=== PATIENT | male | born 1945 | race Caucasian/White ===

== ENCOUNTER → 2017-03-08 | Outpatient (CLI) | payer MEDICARE, OTHER ==
[2017-03-08 16:39] LABS: ALBUMIN 4.1 GM/DL (3.2-5.2); ALBUMIN/GLOBULIN RATIO 1.28 (1.00-1.93); ALKALINE PHOSPHATASE 48 U/L (45-117); ALT/SGPT 40 U/L (12-78); ANION GAP 6 MEQ/L (8-16); AST/SGOT 29 U/L (15-37); BILIRUBIN,TOTAL 0.4 MG/DL (0.2-1.0); BLOOD UREA NITROGEN 19 MG/DL (7-18); CALCIUM LEVEL 9.8 MG/DL (8.8-10.2); CARBON DIOXIDE LEVEL 30 MEQ/L (21-32); CHLORIDE LEVEL 104 MEQ/L (98-107); CREATININE FOR GFR 1.08 MG/DL (0.70-1.30); GLOMERULAR FILTRATION RATE > 60.0 (>42); GLUCOSE, FASTING 175 MG/DL (83-110); POTASSIUM SERUM 5.1 MEQ/L (3.5-5.1); SODIUM LEVEL 140 MEQ/L (136-145); TOTAL PROTEIN 7.3 GM/DL (6.4-8.2)
[2017-03-08 16:42] LABS: BASO % 0.6 % (0.0-1.0); EOS # 0.3 K/mm3 (0.0-0.50); EOS % 3.4 % (0.0-3.0); LARGE UNSTAINED CELL # 0.1 K/mm3 (0.0-0.4); LARGE UNSTAINED CELL % 1.6 % (0.0-4.0); LYMPH # 1.7 K/mm3 (1.5-4.5); LYMPH % 17.3 % (24.0-44.0); MEAN CORPUSCULAR HGB CONC 33.7 g/dl (32.0-36.5); MONO # 0.6 K/mm3 (0.0-0.8); MONO % 6.9 % (0.0-5.0); NEUTROPHILS # 6.3 K/mm3 (1.8-7.7); NEUTROPHILS % 70.2 % (36.0-66.0); PLATELET COUNT, AUTOMATED 199 k/mm3 (150-450); RED CELL DISTRIBUTION WIDTH 13.1 % (11.5-14.5)
== END ==
LOC: M ADAMS 08:57
PROVIDERS: ATTEND Physician Assistant
DX: N30.01 Acute cystitis with hematuria (principal)

== ENCOUNTER → 2017-03-24 | Outpatient (REF) | payer MEDICARE, OTHER ==
[~2017-03-24] MED LIST: ASPI81TA85 PO; CHLO125TA PO; FLUO20CA9 PO; FLUO5CR TOP; GLIM1TAB PO; JANU100T PO; METO50TA2 PO; RAMI5CA PO; SIMV40TA2 PO; VITA500046 PO
[2017-03-24 13:46] LABS: ALBUMIN/GLOBULIN RATIO 1.18 (1.00-1.93); ALKALINE PHOSPHATASE 46 U/L (45-117); ALT/SGPT 39 U/L (12-78); ANION GAP 5 MEQ/L (8-16); AST/SGOT 24 U/L (15-37); BILIRUBIN,TOTAL 0.5 MG/DL (0.2-1.0); BLOOD UREA NITROGEN 16 MG/DL (7-18); CALCIUM LEVEL 9.6 MG/DL (8.8-10.2); CARBON DIOXIDE LEVEL 30 MEQ/L (21-32); CHLORIDE LEVEL 102 MEQ/L (98-107); CHOLESTEROL LEVEL 189 MG/DL (<200); CREATININE FOR GFR 1.09 MG/DL (0.70-1.30); GLOMERULAR FILTRATION RATE > 60.0 (>42); GLUCOSE, FASTING 165 MG/DL (83-110); POTASSIUM SERUM 4.8 MEQ/L (3.5-5.1); SODIUM LEVEL 137 MEQ/L (136-145); TOTAL PROTEIN 7.4 GM/DL (6.4-8.2); TRIGLYCERIDES LEVEL 210 MG/DL (<150)
== END ==
LOC: M LABDRWAD 12:28
PROVIDERS: ATTEND Emergency Medicine
DX: E11.9 Type 2 diabetes mellitus without complications (principal); I10 Essential (primary) hypertension; E78.2 Mixed hyperlipidemia; E55.9 Vitamin D deficiency, unspecified

== ENCOUNTER → 2017-04-15 | Outpatient (CLI) | payer MEDICARE, OTHER ==
[~2017-04-15] VITALS: Ht 180.3 cm; Wt 110.2 kg
[~2017-04-15] MED LIST changes: +LIDOCAINE 2% INJ 100 MG/5 ML SDV (FOR ANES.) As Ordered ONE; +LR 1,000 ML IV SCH; +PROPOFOL 200 MG/20 ML VIAL As Ordered ONE
--- NOTE | 2017-04-15 11:18 | ROOR ---
Patient Name: Kamron Gandara Procedure Date: 04/15/2017 10:18 AM Date of : 1945 Age: 71 Room: [facility] Gender: Male Note Status: Finalized Procedure: Colonoscopy Indications: High risk colon cancer surveillance: Personal history of non-advanced adenoma, Last colonoscopy: 2013 Providers: Donte Casarez MD Referring MD: SAMARA NJ MD Requesting Provider: Medicines: Monitored Anesthesia Care Complications: No immediate complications. Procedure: Pre-Anesthesia Assessment: - Prior to the procedure, a History and Physical was performed, and patient medications and allergies were reviewed. The patient is competent. The risks and benefits of the procedure and the sedation options and risks were discussed with the patient. All questions were answered and informed consent was obtained. Patient identification and proposed procedure were verified by the physician, the nurse and the anesthesiologist in the procedure room. Mental Status Examination: alert and oriented. Airway Examination: normal oropharyngeal airway and neck mobility. CV Examination: regular rate and rhythm. Prophylactic Antibiotics: The patient does not require prophylactic antibiotics. Prior Anticoagulants: The patient has taken no previous anticoagulant or antiplatelet agents. ASA Grade Assessment: III - A patient with severe systemic disease. After reviewing the risks and benefits, the patient was deemed in satisfactory condition to undergo the procedure. The anesthesia plan was to use monitored anesthesia care (MAC). Immediately prior to administration of medications, the patient was re-assessed for adequacy to receive sedatives. The heart rate, respiratory rate, oxygen saturations, blood pressure, adequacy of pulmonary ventilation, and response to care were monitored throughout the procedure. The physical status of the patient was re-assessed after the procedure. The Colonoscope was introduced through the anus and advanced to the cecum, identified by appendiceal orifice and ileocecal valve. The colonoscopy was performed without difficulty. The patient tolerated the procedure well. The quality of the bowel preparation was excellent. Findings: Two sessile polyps were found in the proximal ascending colon. The polyps were diminutive in size. Fulguration to ablate the lesion by snare was successful. Two sessile polyps were found in the hepatic flexure. The polyps were 5 to 8 mm in size. These polyps were removed with a hot snare. Resection and retrieval were complete. Two sessile polyps were found in the descending colon. The polyps were 4 to 5 mm in size. These polyps were removed with a hot snare. Resection and retrieval were complete. A 6 mm polyp was found in the rectum. The polyp was sessile. The polyp was removed with a hot snare. Resection and retrieval were complete. Impression: - Two diminutive polyps in the proximal ascending colon. Treated with a hot snare. - Two 5 to 8 mm polyps at the hepatic flexure, removed with a hot snare. Resected and retrieved. - Two 4 to 5 mm polyps in the descending colon, removed with a hot snare. Resected and retrieved. - One 6 mm polyp in the rectum, removed with a hot snare. Resected and retrieved. Recommendation: - Await pathology results. - Discharge patient to home. - Resume previous diet. - Continue present medications. - Telephone endoscopist for pathology results in 10 days. Donte Casarez MD 04/15/2017 11:17:38 AM Number of Addenda: 0 Note Initiated On: 04/15/2017 10:18 AM Estimated Blood Loss: Estimated blood loss: none.
[2017-04-15 11:30] VITALS: BP 130/64
== END | disposition home or self-care (01) ==
LOC: M OPP 09:17
PROVIDERS: ATTEND Surgery
DX: Z12.11 Encounter for screening for malignant neoplasm of colon (principal); D12.2 Benign neoplasm of ascending colon; D12.3 Benign neoplasm of transverse colon; D12.4 Benign neoplasm of descending colon; K62.1 Rectal polyp; E66.9 Obesity, unspecified; I10 Essential (primary) hypertension; I51.9 Heart disease, unspecified; E11.9 Type 2 diabetes mellitus without complications; E78.00 Pure hypercholesterolemia, unspecified; Z87.891 Personal history of nicotine dependence; Z95.5 Presence of coronary angioplasty implant and graft; Z79.899 Other long term (current) drug therapy; Z79.82 Long term (current) use of aspirin

== ENCOUNTER → 2017-09-23 | Outpatient (REF) | payer MEDICARE, OTHER ==
[~2017-09-23] MED LIST changes: +FLUO20CA19 PO; -FLUO20CA9 PO; -LIDOCAINE 2% INJ 100 MG/5 ML SDV (FOR ANES.) As Ordered ONE; -LR 1,000 ML IV SCH; -METO50TA2 PO; +METO50TA7 PO; -PROPOFOL 200 MG/20 ML VIAL As Ordered ONE
[2017-09-23 16:12] LABS: ALBUMIN 3.7 GM/DL (3.2-5.2); ALBUMIN/GLOBULIN RATIO 1.12 (1.00-1.93); ALKALINE PHOSPHATASE 58 U/L (45-117); ALT/SGPT 26 U/L (12-78); ANION GAP 6 MEQ/L (8-16); AST/SGOT 16 U/L (7-37); BILIRUBIN,TOTAL 0.4 MG/DL (0.2-1.0); BLOOD UREA NITROGEN 21 MG/DL (7-18); CALCIUM LEVEL 9.6 MG/DL (8.8-10.2); CARBON DIOXIDE LEVEL 30 MEQ/L (21-32); CHLORIDE LEVEL 101 MEQ/L (98-107); CHOLESTEROL LEVEL 166 MG/DL (<200); GLOMERULAR FILTRATION RATE > 60.0 (>42); GLUCOSE, FASTING 263 MG/DL (83-110); POTASSIUM SERUM 4.8 MEQ/L (3.5-5.1); SODIUM LEVEL 137 MEQ/L (136-145); TRIGLYCERIDES LEVEL 140 MG/DL (<150)
== END ==
LOC: M LAB REF 15:39
PROVIDERS: ATTEND Emergency Medicine
DX: E11.9 Type 2 diabetes mellitus without complications (principal); I10 Essential (primary) hypertension; E78.2 Mixed hyperlipidemia

== ENCOUNTER → 2017-10-29 | Outpatient (REF) | payer MEDICARE, OTHER | LOC: M LAB REF 12:24 | PROVIDERS: ATTEND Physician Assistant Medical | DX: N39.0 Urinary tract infection, site not specified (principal) ==

== ENCOUNTER → 2018-03-24 | Outpatient (REF) | payer MEDICARE, OTHER ==
[2018-03-24 13:38] LABS: ALBUMIN 4.1 GM/DL (3.2-5.2); ALBUMIN/GLOBULIN RATIO 1.28 (1.00-1.93); ALKALINE PHOSPHATASE 37 U/L (45-117); ALT/SGPT 41 U/L (12-78); ANION GAP 6 MEQ/L (8-16); AST/SGOT 24 U/L (7-37); BILIRUBIN,TOTAL 0.4 MG/DL (0.2-1.0); BLOOD UREA NITROGEN 22 MG/DL (7-18); CALCIUM LEVEL 9.4 MG/DL (8.8-10.2); CARBON DIOXIDE LEVEL 27 MEQ/L (21-32); CHLORIDE LEVEL 106 MEQ/L (98-107); CHOLESTEROL LEVEL 181 MG/DL (<200); CHOLESTEROL RISK RATIO 4.414 (<5); CREATININE FOR GFR 0.99 MG/DL (0.70-1.30); GLOMERULAR FILTRATION RATE > 60.0 (>42); GLUCOSE, FASTING 174 MG/DL (70-100); HDL CHOLESTEROL 41 MG/DL (>40); LDL CHOLESTEROL 86.2 MG/DL (<100); NON-HDL-C 140 MG/DL; POTASSIUM SERUM 4.4 MEQ/L (3.5-5.1); SODIUM LEVEL 139 MEQ/L (136-145); TOTAL PROTEIN 7.3 GM/DL (6.4-8.2); TRIGLYCERIDES LEVEL 269 MG/DL (<150)
[2018-03-24 13:43] LABS: TOTAL 25(OH) VITAMIN D 32.5 NG/ML (30.0-100.0)
[2018-03-24 13:46] LABS: MAU/CREAT RATIO 79.1 MCG/MG (0.0-30.0)
[2018-03-24 13:55] LABS: ESTIMATED AVERAGE GLUCOSE 169 MG/DL (60-110); HEMOGLOBIN A1c 7.5 %
== END ==
LOC: M LABDRWAD 12:33
DX: E11.9 Type 2 diabetes mellitus without complications (principal); I10 Essential (primary) hypertension; E78.2 Mixed hyperlipidemia; E55.9 Vitamin D deficiency, unspecified
CPT/HCPCS: 80053

== ENCOUNTER → 2018-08-11 | Outpatient (REF) | payer MEDICARE, OTHER ==
[2018-08-11 20:03] LABS: BASO % 0.8 % (0.0-1.0); EOS # 0.1 10^3/uL (0.0-0.50); EOS % 2.9 % (0.0-3.0); HEMATOCRIT 40.6 % (42.0-52.0); HEMOGLOBIN 14.4 g/dl (13.5-17.5); IMMATURE GRANULOCYTE % 0.4 % (0-3.0); LYMPH # 1.4 10^3/uL (1.5-4.5); LYMPH % 28.1 % (24.0-44.0); MEAN CORPUSCULAR HEMOGLOBIN 33.9 pg (27.0-33.0); MEAN CORPUSCULAR HGB CONC 35.5 g/dl (32.0-36.5); MEAN CORPUSCULAR VOLUME 95.5 fl (80.0-96.0); MONO # 0.5 10^3/uL (0.0-0.8); MONO % 11.2 % (0.0-5.0); NEUTROPHILS # 2.7 10^3/uL (1.8-7.7); NEUTROPHILS % 56.6 % (36.0-66.0); PLATELET COUNT, AUTOMATED 187 10^3/uL (150-450); RED BLOOD COUNT 4.25 10^6/uL (4.30-6.10); RED CELL DISTRIBUTION WIDTH 13.1 % (11.5-14.5); WHITE BLOOD COUNT 4.8 10^3/uL (4.0-10.0)
[2018-08-11 20:31] LABS: ALBUMIN 4.1 GM/DL (3.2-5.2); ALBUMIN/GLOBULIN RATIO 1.37 (1.00-1.93); ALKALINE PHOSPHATASE 46 U/L (45-117); ALT/SGPT 52 U/L (12-78); ANION GAP 7 MEQ/L (8-16); AST/SGOT 25 U/L (7-37); BILIRUBIN,TOTAL 0.4 MG/DL (0.2-1.0); BLOOD UREA NITROGEN 25 MG/DL (7-18); CALCIUM LEVEL 9.9 MG/DL (8.8-10.2); CARBON DIOXIDE LEVEL 30 MEQ/L (21-32); CHLORIDE LEVEL 101 MEQ/L (98-107); CREATININE FOR GFR 1.06 MG/DL (0.70-1.30); GLOMERULAR FILTRATION RATE > 60.0 (>42); GLUCOSE, FASTING 195 MG/DL (70-100); POTASSIUM SERUM 4.3 MEQ/L (3.5-5.1); SODIUM LEVEL 138 MEQ/L (136-145); TOTAL 25(OH) VITAMIN D 28.8 NG/ML (30.0-100.0); TOTAL PROTEIN 7.1 GM/DL (6.4-8.2)
[2018-08-11 20:33] LABS: FOLATE 20.8 NG/ML
[2018-08-13 14:39] LABS: Lyme Disease IgG/IgM Antibodie <0.91 ISR (0.00-0.90); Lyme Disease IgM Ab Quantitati <0.80 index (0.00-0.79)
== END ==
LOC: M LAB REF 19:11
DX: R53.83 Other fatigue (principal); Z79.899 Other long term (current) drug therapy
CPT/HCPCS: 82746

== ENCOUNTER → 2018-10-05 | Outpatient (REF) | payer MEDICARE, OTHER ==
[2018-10-05 13:36] LABS: ALBUMIN 4.1 GM/DL (3.2-5.2); ALBUMIN/GLOBULIN RATIO 1.28 (1.00-1.93); ALKALINE PHOSPHATASE 45 U/L (45-117); ALT/SGPT 41 U/L (12-78); ANION GAP 7 MEQ/L (8-16); AST/SGOT 27 U/L (7-37); BILIRUBIN,TOTAL 0.5 MG/DL (0.2-1.0); BLOOD UREA NITROGEN 23 MG/DL (7-18); CALCIUM LEVEL 10.2 MG/DL (8.8-10.2); CARBON DIOXIDE LEVEL 30 MEQ/L (21-32); CHLORIDE LEVEL 100 MEQ/L (98-107); CHOLESTEROL LEVEL 188 MG/DL (<200); CHOLESTEROL RISK RATIO 4.272 (<5); CREATININE FOR GFR 1.32 MG/DL (0.70-1.30); GLOMERULAR FILTRATION RATE 56.4 (>42); GLUCOSE, FASTING 171 MG/DL (70-100); HDL CHOLESTEROL 44 MG/DL (>40); LDL CHOLESTEROL 101 MG/DL (<100); NON-HDL-C 144 MG/DL; SODIUM LEVEL 137 MEQ/L (136-145); TOTAL PROTEIN 7.3 GM/DL (6.4-8.2); TRIGLYCERIDES LEVEL 217 MG/DL (<150)
[2018-10-05 14:26] LABS: ESTIMATED AVERAGE GLUCOSE 157 MG/DL (60-110); HEMOGLOBIN A1c 7.1 %
== END ==
LOC: M LAB REF 12:18
DX: E11.9 Type 2 diabetes mellitus without complications (principal); I10 Essential (primary) hypertension; E78.2 Mixed hyperlipidemia
CPT/HCPCS: 80053

== ENCOUNTER → 2018-10-23 | Outpatient (REF) | payer MEDICARE, OTHER ==
[~2018-10-23] MED LIST changes: +RAMI1CAP24 PO; -RAMI5CA PO
[2018-10-23 14:17] LABS: COMPLEMENT C3 122 MG/DL (90-180); COMPLEMENT C4 19 MG/DL (10-40); TOTAL PROTEIN 7.4 GM/DL (6.4-8.2)
[2018-10-23 14:21] LABS: HEPATITIS B SURFACE ANTIBODY NEGATIVE (POSITIVE)
[2018-10-23 14:31] LABS: HEPATITIS B SURFACE ANTIGEN NEGATIVE (NEGATIVE)
[2018-10-23 14:39] LABS: URINE TOTAL PROTEIN 38.5 MG/DL (0-12)
[2018-10-23 14:59] LABS: HEPATITIS C VIRUS ABY INDEX 0.1 INDEX (<0.8)
[2018-10-23 15:00] LABS: HEPATITIS B CORE ANTIBODY IGM NEGATIVE (NEGATIVE)
[2018-10-26 11:53] LABS: ALBUMIN 4.45 GM/DL (3.29-5.55); ALBUMIN % 60.1 % (55.8-66.1); ALPHA-2-GLOBULINS 0.75 GM/DL (0.42-0.99); ALPHA-2-GLOBULINS % 10.1 % (7.1-11.8); BETA-1-GLOBULINS 0.53 GM/DL (0.28-0.60); BETA-1-GLOBULINS % 7.1 % (4.7-7.2); BETA-2-GLOBULINS 0.41 GM/DL (0.19-0.55); BETA-2-GLOBULINS % 5.5 % (3.2-6.5); GAMMA GLOBULIN % 13.2 % (11.1-18.8); GAMMA GLOBULINS 0.98 GM/DL (0.65-1.58)
[2018-10-28 00:06] LABS: ANCA-ATYPICAL <1:20 titer (Neg:<1:20); ANTI DOUBLE STRAND-DNA AB 1 IU/mL (0-9); ANTI-GLOMERULAR BASEMENT MEMB 3 units (0-20); ANTINUCLEAR ANTIBODIES DIRECT Negative (Negative); CYTOPLASMIC NEUTROP AB ANCA-C <1:20 titer (Neg:<1:20); FREE KAPPA LIGHT CHAINS SERUM 18.3 mg/L (3.3-19.4); FREE LAMBDA LIGHT CHAINS SERUM 12.6 mg/L (5.7-26.3); KAPPA/LAMBDA RATIO SERUM 1.45 (0.26-1.65); PERINUCLEAR AB ANCA-P <1:20 titer (Neg:<1:20)
[2018-10-29 14:17] LABS: UPEP INTERPRETATION NO M-SPIKE NOTED
== END ==
LOC: M LAB REF 13:09
PROVIDERS: ATTEND Internal Medicine Nephrology
DX: R80.9 Proteinuria, unspecified (principal)

== ENCOUNTER → 2018-10-26 | Outpatient (REF) | payer MEDICARE, OTHER ==
[2018-10-26 19:07] LABS: CREATININE, URINE 83.3 MG/DL
[2018-10-26 20:44] LABS: CREATININE 24 HOUR, URINE 1366.1 MG/24HR (950-2500); TOTAL PROTEIN 24 HOUR URINE 360.8 MG/24HR (50-150)
== END ==
LOC: M LAB REF 17:16
PROVIDERS: ATTEND Internal Medicine Nephrology
DX: R80.9 Proteinuria, unspecified (principal)

== ENCOUNTER → 2018-10-29 | Outpatient (CLI) | payer MEDICARE, OTHER ==
--- NOTE | 2018-10-29 10:32 | REP ---
RENAL ULTRASOUND: HISTORY: Chronic kidney disease. The kidneys are slightly hyperechoic. The right kidney measures 6.4 cm in transverse by 5.3 cm in AP by 12.8 cm in cephalocaudal dimensions. The left kidney measures 5.6 cm in transverse by 6.7 cm in AP by 13.7 cm in cephalocaudal dimensions. Two small cysts are present in the left kidney. These measure 2.7 x 2 cm in maximum dimension. Small scattered echogenic foci are present in the kidneys that may represent nonobstructing stones. There is no hydronephrosis or mass. There are no filling defects in the urinary bladder. Pre-void volume is 185 cc. Postvoid residual is 27 cc. IMPRESSION: 1. The kidneys are hyperechoic consistent with medical renal disease. 2. There are small scattered echogenic foci in the kidneys that may represent nonobstructing stones. 3. There are two small left renal cysts. Electronically Signed by Porfirio Turner MD 10/29/2018 10:34 A
== END ==
LOC: M RAD 08:57
PROVIDERS: ATTEND Internal Medicine Nephrology
DX: N18.2 Chronic kidney disease, stage 2 (mild) (principal); E11.22 Type 2 diabetes mellitus with diabetic chronic kidney disease; I12.9 Hypertensive chronic kidney disease with stage 1 through stage 4 chronic kidney disease, or unspecified chronic kidney disease; R80.9 Proteinuria, unspecified; N28.1 Cyst of kidney, acquired

== ENCOUNTER → 2019-03-18 | Outpatient (REF) | payer MEDICARE, OTHER ==
[~2019-03-18] MED LIST changes: +FLUO0.05 TOP; -FLUO5CR TOP
[2019-03-18 12:45] LABS: BASO % 0.8 % (0.0-1.0); EOS # 0.2 10^3/uL (0.0-0.50); EOS % 3.6 % (0.0-3.0); HEMATOCRIT 43.6 % (42.0-52.0); HEMOGLOBIN 15.2 g/dl (13.5-17.5); LYMPH # 1.8 10^3/uL (1.5-4.5); MEAN CORPUSCULAR HEMOGLOBIN 33.9 pg (27.0-33.0); MEAN CORPUSCULAR HGB CONC 34.9 g/dl (32.0-36.5); MEAN CORPUSCULAR VOLUME 97.1 fl (80.0-96.0); MONO # 0.6 10^3/uL (0.0-0.8); MONO % 12.5 % (0.0-5.0); NEUTROPHILS # 2.4 10^3/uL (1.8-7.7); NEUTROPHILS % 46.9 % (36.0-66.0); PLATELET COUNT, AUTOMATED 183 10^3/uL (150-450); RED BLOOD COUNT 4.49 10^6/uL (4.30-6.10)
[2019-03-18 13:07] LABS: ALBUMIN 4.2 GM/DL (3.2-5.2); ALT/SGPT 44 U/L (12-78); BILIRUBIN,TOTAL 0.4 MG/DL (0.2-1.0); BLOOD UREA NITROGEN 23 MG/DL (7-18); CALCIUM LEVEL 9.4 MG/DL (8.8-10.2); CARBON DIOXIDE LEVEL 29 MEQ/L (21-32); CHLORIDE LEVEL 102 MEQ/L (98-107); CREATININE FOR GFR 1.09 MG/DL (0.70-1.30); GLOMERULAR FILTRATION RATE > 60.0 (>42); GLUCOSE, FASTING 184 MG/DL (70-100); POTASSIUM SERUM 4.4 MEQ/L (3.5-5.1); SODIUM LEVEL 137 MEQ/L (136-145); TOTAL PROTEIN 7.1 GM/DL (6.4-8.2)
[2019-03-18 14:41] LABS: HEMOGLOBIN A1c 7.9 %
== END ==
LOC: M LABDRWAD 12:25
PROVIDERS: ATTEND Physician Assistant
DX: E11.69 Type 2 diabetes mellitus with other specified complication (principal)

== ENCOUNTER → 2019-06-09 | Outpatient (REF) | payer MEDICARE, OTHER ==
[2019-06-10 14:08] LABS: PSA TOTAL 1.5 ng/mL (0.0-4.0)
== END ==
LOC: M LAB REF 13:17
PROVIDERS: ATTEND Nurse Practitioner Family
DX: R35.0 Frequency of micturition (principal); R35.1 Nocturia; Z12.5 Encounter for screening for malignant neoplasm of prostate

== ENCOUNTER → 2019-06-14 | Outpatient (CLI) | payer MEDICARE, OTHER ==
--- NOTE | 2019-06-14 14:06 | REP ---
REASON: Nocturia and urinary frequency. Multiple ultrasonographic images of the urinary bladder show the vesicular wall to be 4 mm in thickness. The previous urinary bladder volume calculation is 189 mL with the length, width and height measuring 7.3 x 6.1 x 6.5 cm respectively. The post void calculation is 24 mL with a length, width and height measurement of 4.2 x 3.2 x 2.7 cm respectively. The prostate gland was measured at 5 x4 2.x 5.2 cm. No gross urinary bladder masses were identified by ultrasound. IMPRESSION: As above. Electronically Signed by Yonathan Lamb DO 06/14/2019 02:21 P
== END ==
LOC: M RAD 08:46
PROVIDERS: ATTEND Nurse Practitioner Family
DX: R35.0 Frequency of micturition (principal); R35.1 Nocturia

== ENCOUNTER → 2019-09-27 | Outpatient (REF) | payer MEDICARE, OTHER ==
[~2019-09-27] MED LIST changes: -GLIM1TAB PO; +GLIM1TAB2 PO
[2019-09-27 14:17] LABS: TOTAL 25(OH) VITAMIN D 42.4 NG/ML (30.0-100.0)
[2019-09-27 14:36] LABS: ALT/SGPT 57 U/L (12-78); BILIRUBIN,TOTAL 0.5 MG/DL (0.2-1.0); BLOOD UREA NITROGEN 21 MG/DL (7-18); CALCIUM LEVEL 10.1 MG/DL (8.8-10.2); CARBON DIOXIDE LEVEL 31 MEQ/L (21-32); CHLORIDE LEVEL 101 MEQ/L (98-107); CHOLESTEROL LEVEL 206 MG/DL (<200); CHOLESTEROL RISK RATIO 3.121 (<5); CREATININE FOR GFR 1.19 MG/DL (0.70-1.30); GLOMERULAR FILTRATION RATE > 60.0 (>42); GLUCOSE, FASTING 247 MG/DL (70-100); HDL CHOLESTEROL 66 MG/DL (>40); LDL CHOLESTEROL 73 MG/DL (<100); NON-HDL-C 140 MG/DL; POTASSIUM SERUM 4.2 MEQ/L (3.5-5.1); SODIUM LEVEL 139 MEQ/L (136-145); TOTAL PROTEIN 7.3 GM/DL (6.4-8.2); TRIGLYCERIDES LEVEL 336 MG/DL (<150)
[2019-09-27 14:56] LABS: MAU/CREAT RATIO 130.8 MCG/MG (0.0-30.0)
== END ==
LOC: M LABDRWAD 12:43
PROVIDERS: ATTEND Physician Assistant
DX: E11.69 Type 2 diabetes mellitus with other specified complication (principal); E78.2 Mixed hyperlipidemia; E55.9 Vitamin D deficiency, unspecified

== ENCOUNTER → 2020-01-03 | Outpatient (REF) | payer MEDICARE, OTHER ==
[~2020-01-03] MED LIST changes: -FLUO20CA19 PO; +FLUO20CA22 PO; -GLIM1TAB2 PO; +GLIM1TAB4 PO; -SIMV40TA2 PO; +SIMV40TA20 PO
[2020-01-03 13:05] LABS: BILIRUBIN,TOTAL 0.6 MG/DL (0.2-1.0); CALCIUM LEVEL 10.1 MG/DL (8.8-10.2); CREATININE FOR GFR 1.26 MG/DL (0.70-1.30); GLOMERULAR FILTRATION RATE 59.2 (>42); POTASSIUM SERUM 4.8 MEQ/L (3.5-5.1); TOTAL PROTEIN 7.2 GM/DL (6.4-8.2)
[2020-01-03 14:05] LABS: HEMOGLOBIN A1c 8.2 %
== END ==
LOC: M LABDRAW1 12:30
PROVIDERS: ATTEND Physician Assistant
DX: E11.69 Type 2 diabetes mellitus with other specified complication (principal)

== ENCOUNTER → 2020-06-16 | Outpatient (REF) | payer MEDICARE, OTHER ==
[~2020-06-16] MED LIST changes: -ASPI81TA85 PO; +ASPI81TA86 PO; +D31000TA2 PO; +TRUL0.5I SQ
[2020-08-02 01:40] LABS: ALBUMIN 4.1 GM/DL (3.2-5.2); ALT/SGPT 40 U/L (12-78); BILIRUBIN,TOTAL 0.4 MG/DL (0.2-1.0); BLOOD UREA NITROGEN 19 MG/DL (7-18); CALCIUM LEVEL 9.9 MG/DL (8.8-10.2); CARBON DIOXIDE LEVEL 31 MEQ/L (21-32); CHLORIDE LEVEL 101 MEQ/L (98-107); CHOLESTEROL LEVEL 208 MG/DL (<200); CHOLESTEROL RISK RATIO 4.521 (<5); CREATININE FOR GFR 1.07 MG/DL (0.70-1.30); GLOMERULAR FILTRATION RATE > 60.0 (>42); GLUCOSE, FASTING 158 MG/DL (70-100); HDL CHOLESTEROL 46 MG/DL (>40); LDL CHOLESTEROL 113 MG/DL (<100); MALB URINE SIEMENS 92.9 MG/L; NON-HDL-C 162 MG/DL; POTASSIUM SERUM 4.6 MEQ/L (3.5-5.1); SODIUM LEVEL 137 MEQ/L (136-145); TOTAL PROTEIN 7.6 GM/DL (6.4-8.2); TRIGLYCERIDES LEVEL 244 MG/DL (<150)
[2020-08-02 01:41] LABS: HEMOGLOBIN A1c 6.8 %
== END ==
LOC: M LABDRWAD 11:07
PROVIDERS: ATTEND Physician Assistant
DX: E78.2 Mixed hyperlipidemia (principal); E11.69 Type 2 diabetes mellitus with other specified complication

== ENCOUNTER 2020-07-04 06:53 | Day surgery (SDC) | payer MEDICARE, OTHER ==
[~2020-07-04] VITALS: Ht 180.3 cm; Wt 108.0 kg
[2020-07-04] MEDS ORDERED: LIDOCAINE 2% 100MG/5ML SDV (FOR ANES.) As Ordered ONE (07:48)
[2020-07-04] MEDS ORDERED: propofoL 500 MG/50 ML VIAL As Ordered ONE (07:48)
[2020-07-04 08:43] VITALS: BP 146/67
--- NOTE | 2020-07-19 11:30 | ROOR ---
Patient Name: Kamron Gandara Procedure Date: 07/04/2020 7:35 AM Date of : 1945 Age: 74 Room: [facility] Gender: Male Note Status: Finalized Procedure: Colonoscopy Indications: High risk colon cancer surveillance: Personal history of colonic polyps, Last colonoscopy: April 2017 Providers: Donte Casarez MD Referring MD: TRISTIN Richardson Requesting Provider: Medicines: Monitored Anesthesia Care Complications: No immediate complications. Procedure: Pre-Anesthesia Assessment: - Prior to the procedure, a History and Physical was performed, and patient medications and allergies were reviewed. The patient is competent. The risks and benefits of the procedure and the sedation options and risks were discussed with the patient. All questions were answered and informed consent was obtained. Patient identification and proposed procedure were verified by the physician, the nurse and the anesthesiologist in the procedure room. Mental Status Examination: alert and oriented. Prophylactic Antibiotics: The patient does not require prophylactic antibiotics. Prior Anticoagulants: The patient has taken no previous anticoagulant or antiplatelet agents. ASA Grade Assessment: III - A patient with severe systemic disease. After reviewing the risks and benefits, the patient was deemed in satisfactory condition to undergo the procedure. The anesthesia plan was to use monitored anesthesia care (MAC). Immediately prior to administration of medications, the patient was re-assessed for adequacy to receive sedatives. The heart rate, respiratory rate, oxygen saturations, blood pressure, adequacy of pulmonary ventilation, and response to care were monitored throughout the procedure. The physical status of the patient was re-assessed after the procedure. The Colonoscope was introduced through the anus and advanced to the cecum, identified by appendiceal orifice and ileocecal valve. The colonoscopy was performed without difficulty. The patient tolerated the procedure well. The quality of the bowel preparation was excellent. Findings: The perianal and digital rectal examinations were normal. Three sessile polyps were found in the rectum. The polyps were diminutive in size. These were biopsied with a cold forceps for histology. Estimated blood loss was minimal. The exam was otherwise without abnormality. Impression: - Three diminutive polyps in the rectum. Biopsied. - The examination was otherwise normal. Recommendation: - Discharge patient to home. - Resume previous diet. - Continue present medications. - Await pathology results. - If the pathology report reveals no adenomatous tissue, then repeat the colonoscopy for surveillance in 5 years. Donte Casarez MD Donte Casarez MD 07/04/2020 8:11:27 AM Number of Addenda: 0 Note Initiated On: 07/04/2020 7:35 AM Estimated Blood Loss: Estimated blood loss was minimal.
== END 2020-07-04 08:43 | disposition home or self-care (01) ==
LOC: M OPP 06:53
PROVIDERS: ATTEND Surgery
DX: Z12.11 Encounter for screening for malignant neoplasm of colon (principal); Z86.010 Personal history of colon polyps; K62.1 Rectal polyp; E11.9 Type 2 diabetes mellitus without complications; H81.09 Meniere's disease, unspecified ear; I25.2 Old myocardial infarction; F17.220 Nicotine dependence, chewing tobacco, uncomplicated; Z79.82 Long term (current) use of aspirin; Z79.84 Long term (current) use of oral hypoglycemic drugs; Z79.899 Other long term (current) drug therapy; Z95.5 Presence of coronary angioplasty implant and graft

== ENCOUNTER → 2020-09-18 | Outpatient (CLI) | payer MEDICARE, OTHER ==
--- NOTE | 2020-09-18 14:02 | REP ---
INDICATION: PAIN IN RIGHT LOWER LEG. COMPARISON: None TECHNIQUE: Multiple ultrasonographic images of the deep venous structures of the right thigh were obtained from the level of the common femoral vein to the popliteal vein in the longitudinal and transverse scan planes along with Doppler interrogation and color flow Doppler imaging. FINDINGS: There is no abnormal echogenic material seen within any of the visualized deep venous structures that would suggest acute thrombosis. Coaptation is unremarkable throughout. Doppler interrogation shows an expected response to respiratory variability and augmentation. The color flow Doppler images show what appears to be a normal vascular pattern throughout. IMPRESSION: There is no ultrasonographic evidence of deep venous thrombosis involving any of the visualized deep venous structures of the right thigh as described above. Accredited by the [employer] in Vascular Peripheral Ultrasound. <Electronically signed by Biju Koch > 09/18/20 [id number]
--- NOTE | 2020-09-18 14:06 | REP ---
INDICATION: PAIN IN RIGHT LOWER LEG. COMPARISON: None. TECHNIQUE: Unilateral right lower extremity duplex arterial ultrasound: FINDINGS: Ankle brachial index is 0.5 on the right which is low. Heavy vascular calcification is observed in the arterial tree in the right lower extremity from the common femoral artery to the ankle. A 521 velocity ratio stenosis is observed in the mid to distal superficial femoral artery on the right and the distal superficial femoral artery on the right is occluded. Monophasic waveforms are noted at and below proximal SFA on the right. 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 Heavy vascular calcification. <Electronically signed by Pacheco Mcallister > 09/18/20 [id number]
== END ==
LOC: M RAD 12:26
PROVIDERS: ATTEND Nurse Practitioner Family
DX: M79.661 Pain in right lower leg (principal)

== ENCOUNTER 2020-09-25 14:17 | Emergency (ER) | payer MEDICARE, OTHER ==
[~2020-09-25] VITALS: Ht 180.3 cm; Wt 111.6 kg
[2020-09-25] MEDS ORDERED: TRUL10IN (14:31)
[2020-09-25] MEDS ORDERED: FINA5TAB2 (14:31)
--- NOTE | 2020-09-25 15:50 | REP ---
INDICATION: DYSPNEA/COUGH. COMPARISON: A 1009 FINDINGS: The technique utilized in obtaining the radiograph has magnified the cardiac silhouette and accentuated the interstitial markings. The superior mediastinal structures are midline. The cardiac silhouette is unremarkable in size, shape, and position. The diaphragmatic surfaces of the lungs are regular, and the costophrenic angles are clear. The pulmonary barajas are clear. The imaged osseous structures are intact. IMPRESSION: There is no acute cardiopulmonary disease. <Electronically signed by Yonathan Lamb > 09/25/20 [id number]
[2020-09-25 16:12] LABS: BASO % 0.6 % (0.0-1.0); EOS # 0.2 10^3/uL (0.0-0.5); EOS % 3.4 % (0.0-3.0); HEMATOCRIT 40.6 % (42.0-52.0); LYMPH # 1.5 10^3/uL (1.5-5.0); LYMPH % 28.8 % (24.0-44.0); MEAN CORPUSCULAR HGB CONC 34.5 g/dl (32.0-36.5); MEAN CORPUSCULAR VOLUME 95.8 fl (80.0-96.0); MONO # 0.7 10^3/uL (0.0-0.8); MONO % 13.5 % (0.0-5.0); NEUTROPHILS # 2.7 10^3/uL (1.5-8.5); NEUTROPHILS % 53.5 % (36.0-66.0); PLATELET COUNT, AUTOMATED 170 10^3/uL (150-450); RED BLOOD COUNT 4.24 10^6/uL (4.30-6.10)
[2020-09-25 16:22] LABS: INR 1.02; PROTHROMBIN TIME 13.6 SECONDS (12.5-14.3)
[2020-09-25 16:23] LABS: PARTIAL THROMBOPLASTIN TIME 30.3 SECONDS (24.2-38.5)
[2020-09-25 16:25] LABS: D-DIMER QUANT 1484.92 ng/ml (<500)
[2020-09-25 16:35] LABS: BLOOD UREA NITROGEN 21 MG/DL (7-18); CALCIUM LEVEL 10.2 MG/DL (8.8-10.2); CARBON DIOXIDE LEVEL 30 MEQ/L (21-32); CHLORIDE LEVEL 103 MEQ/L (98-107); CREATININE FOR GFR 1.17 MG/DL (0.70-1.30); GLOMERULAR FILTRATION RATE > 60.0 (>42); GLUCOSE, FASTING 115 MG/DL (70-100); POTASSIUM SERUM 4.2 MEQ/L (3.5-5.1); SODIUM LEVEL 138 MEQ/L (136-145)
[2020-09-25] MEDS ORDERED: ISOVUE-370 76% 100ML VIAL As Ordered ONE (16:56)
--- NOTE | 2020-09-25 17:49 | REPVR ---
PROCEDURE INFORMATION: Exam: CT Angiography Chest With Contrast Exam date and time: 09/25/2020 4:54 PM Age: 74 years old Clinical indication: Shortness of breath; Additional info: SOB R/O pe TECHNIQUE: Imaging protocol: Computed tomographic angiography of the chest with intravenous contrast. 3D rendering (Not supervised by radiologist): MIP and/or 3D reconstructed images were created by the technologist. Radiation optimization: All CT scans at this facility use at least one of these dose optimization techniques: automated exposure control; mA and/or kV adjustment per patient size (includes targeted exams where dose is matched to clinical indication); or iterative reconstruction. Contrast material: ISOVUE 370; Contrast volume: 75 ml; Contrast route: INTRAVENOUS (IV); COMPARISON: CR PORTABLE CHEST X-RAY 09/25/2020 3:26 PM FINDINGS: Pulmonary arteries: No filling defects are seen in the pulmonary arteries bilaterally. Aorta: There is atherosclerotic calcification of the thoracic aorta. Mildly tortuous thoracic aorta. Atherosclerotic calcification without narrowing noted at the branching great vessels off the aortic arch. Additional atherosclerotic changes in the upper abdominal aorta. Lungs: There is a 7 mm soft tissue density pulmonary nodule which is subpleural at the right lung base on series 402, image 47. There is a 3 mm subsolid subpleural pulmonary nodule in the left lower lobe posteriorly on series 402, image 47. 7 mm soft tissue density pulmonary nodule is seen which is subpleural in the right lower lobe posterolaterally on series 402, image 38. 6 mm soft tissue density subpleural pulmonary nodule in the right middle lobe laterally on series 402, image 36. 5 mm sub solid parenchymal pulmonary nodule in the left lower lobe posterolaterally on series 402, image 56. Minimal peripheral reticulonodular opacities in both upper lobes as well as the lower lobes. There are a few scattered bilateral 1-2 mm soft tissue density pulmonary nodules as well. Minimal discoid atelectasis or scar in the lingula and right middle lobe. Pleural space: Unremarkable. No pneumothorax. No pleural effusion. Heart: Coronary atherosclerosis is noted. There is calcification at the aortic valve and mitral valve annulus. Heart size appears enlarged. There is outpouching at the left ventricular apex with apical wall thinning. Left ventricular aneurysm may be present. Lymph nodes: There are small lymph nodes along the celiac axis as well as in the portal region and portacaval region. Gallbladder and bile ducts: Sludge or slightly radiopaque stones layering dependently in the gallbladder. No pericholecystic inflammatory changes or biliary ductal dilatation. Kidneys and ureters: Minimal fat stranding adjacent to the upper poles of the kidneys, partially included. Bones/joints: Incidental hemangioma noted in the T3 vertebral body. No acute fracture. Soft tissues: Unremarkable. IMPRESSION: 1. No evidence of pulmonary embolism. 2. Bilateral pulmonary nodules, with soft tissue density pulmonary nodules measuring up to 7 mm and subsolid pulmonary nodules measuring up to [address] Chest at 3-6 months. If stable, then consider CT Chest at 2 years and 4 years. (Reference: Shakeel) 3. Aortic and coronary atherosclerosis. 4. Sludge or slightly radiopaque stones likely present in the gallbladder. 5. Cardiomegaly, with minimal outpouching at the left ventricular apex which may be from apical wall thinning, potentially a small left ventricular aneurysm at the apex. References: Shakeel H, et al. Guidelines for Management of Incidental Pulmonary Nodules Detected on CT Images: From the Fleischner Society 2017. Radiology. 2017;284(1):228-243. Electronically signed by: Meka Fonseca On 09/25/2020 17:48:55 PM
[2020-09-25 20:45] VITALS: BP 133/60
--- NOTE | 2020-09-26 00:01 | ECGEPIP ---
[facility] - ED Test Date: 2020-09-25 Pat Name: CITLALI HORN Department: Room: - Gender: Male Solution Mixer: CHRISSIE : 1945 Requested By: ART Kelly Order Number: [id number] Reading MD: Jerson Echavarria Measurements Intervals [place] Rate: 66 P: 65 SC: 157 QRS: 13 QRSD: 105 T: 53 QT: 404 QTc: 425 Interpretive Statements SINUS RHYTHM INFERIOR MYOCARDIAL INFARCTION, PROBABLY OLD POOR R WAVE PROGRESSION NO PRIORS FOR COMPARISON Electronically Signed on 09-26-2020 0:00:52 EST by Jerson Echavarria
--- NOTE | 2020-09-26 00:04 | ECGEPIP ---
[facility] - ED Test Date: 2020-09-25 Pat Name: CITLALI HORN Department: Room: - Gender: Male Laboratory Miller: CHRISSIE : 1945 Requested By: IRIS BURNETTE Order Number: [id number] Reading MD: Jerson Echavarria Measurements Intervals [place] Rate: 64 P: 54 CT: 167 QRS: 8 QRSD: 104 T: 41 QT: 412 QTc: 426 Interpretive Statements SINUS RHYTHM INFERIOR MYOCARDIAL INFARCTION, PROBABLY OLD POOR R WAVE PROGRESSION SIMILAR TO PRIOR ON SAME DATE Electronically Signed on 09-26-2020 0:03:56 EST by Jerson Echavarria
--- NOTE | 2020-09-27 10:28 | ED PDOC ---
Post-Departure Follow-Up benji norton faxed formal report of cta chest for fu Nick Larkin MD Sep 27, 2020 10:28
== END 2020-09-25 21:01 | disposition home or self-care (01) ==
LOC: M ED 14:17
DX: I73.9 Peripheral vascular disease, unspecified (principal); R07.9 Chest pain, unspecified; R06.00 Dyspnea, unspecified; E11.9 Type 2 diabetes mellitus without complications; I10 Essential (primary) hypertension; E78.5 Hyperlipidemia, unspecified; F41.9 Anxiety disorder, unspecified; I25.2 Old myocardial infarction; Z95.5 Presence of coronary angioplasty implant and graft; Z79.899 Other long term (current) drug therapy; Z79.82 Long term (current) use of aspirin; F17.220 Nicotine dependence, chewing tobacco, uncomplicated
CPT/HCPCS: 36415; 71045; 71275; 80048; 84484; 85025; 85379; 85610; 85730; 93005; 93041; 94760; 99285; Q9967

== ENCOUNTER → 2020-11-08 | Outpatient (CLI) | payer MEDICARE, OTHER ==
[~2020-11-08] MED LIST changes: +CLOP75TA2 PO; +FINA5TAB2; +ISOVUE-300 61% 50ML VIAL As Ordered ONE; +LIDOCAINE 1% MDV 20ML VIAL As Ordered ONE; +MIDAZOLAM INJ 2MG/2ML VIAL (J2250 PER 1MG) As Ordered ONE; +TRUL10IN; +fentaNYL 100 MCG/2 ML INJECTION (J3010) As Ordered ONE
[2020-11-08 07:03] LABS: HEMATOCRIT 42.9 % (42.0-52.0); MEAN CORPUSCULAR HEMOGLOBIN 33.8 pg (27.0-33.0); MEAN CORPUSCULAR VOLUME 96.6 fl (80.0-96.0); PLATELET COUNT, AUTOMATED 174 10^3/uL (150-450); RED BLOOD COUNT 4.44 10^6/uL (4.30-6.10)
[2020-11-08 07:30] LABS: CALCIUM LEVEL 9.6 MG/DL (8.8-10.2); CREATININE FOR GFR 1.25 MG/DL (0.70-1.30); GLOMERULAR FILTRATION RATE 59.6 (>42); POTASSIUM SERUM 4.1 MEQ/L (3.5-5.1)
--- NOTE | 2020-11-08 10:21 | ROOPDOC ---
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 Ultrasound-guided access left common femoral artery 2. Aortoiliofemoral arteriogram 3. Selection right superficial femoral artery and right lower extremity runoff 4. 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 Selection branch of right peroneal artery and right posterior tibial artery with arteriogram 6. Angioplasty right superficial femoral artery was 6 x 200 [place] balloon 7. Stenting mid to distal right superficial femoral artery with 7 x 150 Innova stent and post-dilation with 7 x 100 [place] balloon, 7 x 40 [place] balloon, 6 x 40 conquest balloon 8. Coil branch of right posterior tibial artery with a 5 x 3 haydee coil and right peroneal artery with 5 x 3 and 4 x 3 Haydee coils to minimize flow into AV malformation right lateral calf 9. Completion arteriograms 10. Mynx closure left common femoral artery SURGEON: Callie Gurrola MD ANESTHESIA: Local anesthesia 8 mL lidocaine. Moderate intravenous conscious sedation was supervised by Dr. Gurrola. The patient was independently monitor by registered nurse under the department of radiology using automated blood pressure, EKG, and pulse oximetry. The detailed sedation record is permanently started in the hospital information system. The following is a brief sedation record: Start time 08:01, stop time 09:31, Versed 2 mg IV, fentanyl 100 g IV, heparin 4000 units IV. CONTRAST: 55 mL Isovue-300 INDICATION FOR PROCEDURE: This is a very pleasant 75-year-old patient with atherosclerosis of the sitka arteries and lifestyle limiting claudication of the right lower extremity with pain in the right leg. He has diabetes and may have a component of neuropathy, but the majority of his pain is unilateral which would not be consistent with neuropathy. His RUSTAM is 0.5 and we suspect distal SFA occlusion based on the arterial ultrasound. Risks benefits and alternatives to an arteriogram and potential intervention were explained to the patient. He is agreeable to proceed. Informed consent was obtained. INTERPRETATION: 1. 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 There is dense calcified plaque in this area. However, there is rapid flow into the bilateral common iliac arteries despite the stenosis. 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 There is good flow into the right hypogastric and external iliac artery. All are ectatic but widely patent. On the left, the common iliac artery is widely patent aside from the mild stenosis at the origin related to the distal aortic stenosis. The hypogastric and external iliac artery are ectatic but patent. 2. The bilateral common femoral arteries are calcified but patent with good flow into the origins of the profunda in the SFA. 3. On the right, the superficial femoral artery is ectatic but patent to the midportion, then there is heavy plaque within occlusion of bulky calcified plaque at Pawel's canal and reconstitution distal to this through collaterals with some mild disease in the popliteal artery. The breast of the distal popliteal artery is patent with good runoff into the anterior tibial artery, tibioperoneal trunk, posterior tibial artery and peroneal artery. There is 3 vessel runoff to the foot. 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 There is a branch from the peroneal artery and the posterior tibial artery that seemed to be the main contributors to this AV malformation and there is some steal of blood from the rest of the tibial system. 4. After predilation of the stenosis and occlusion in the SFA, we did have some flow with significant expected dissection in the area of heaviest plaque. No sterilization noted. After stenting, the area of heaviest plaque and occlusion at Pawel's canal was still nearly occluded and after post-dilation with a 7 x 100 balloon, we were not able to completely open the stent. We tried with a shorter balloon, 7 x 40, hoping for an increased pressure focally at that area, but also this was unsuccessful. We then tried a high-pressure balloon, 6 x 40 because we did not have a 7 x 40 available, but this only slightly improved the luminal diameter. Unfortunately, due to the really bulky calcified plaque this may be the best endovascular flow we were able to give him. There was no extravasation embolization or dissection noted after treating the SFA. 5. After coiling the largest contributing branches to the AV malformation in the lateral calf off of the peroneal artery and posterior tibial artery, there was diminished flow into the AV fistula and improve flow into the main tibial vessels to the foot. There is still some flow into AV fistula, likely due to an extensive number of small feeding vessels, but the main arterial flow has been successfully coiled. This should also help his perfusion. REPORT OF OPERATION: The patient was brought to the angiographic suite in stable condition. His bilateral groins were prepped and draped in a sterile fashion. A timeout was performed. Local analgesia was administered to skin and subcutaneous tissue over the left common femoral artery and sedation was administered without combination. A microneedle was used to access the left common femoral artery under ultrasound guidance. A wire was passed through this access under fluoroscopic guidance a 4 Jordanian sheath was placed and flushed with saline. A Glidewire and flushing catheter were advanced into the aorta. Aortoiliofemoral a rteriogram was performed, please see interpretation above. We then went up and over the bifurcation with the flushing catheter and the Glidewire and selected the left superficial femoral artery and right lower extremity runoff was performed. Please see interpretation above. We then exchanges sheath for a 6 Jordanian 45 cm destination sheath over the wire using a Seldinger technique. A [place] catheter was introduced over the wire and we were able to successfully cross the occlusion at the distal right superficial femoral artery. Once in the popliteal artery, a contrast injection was performed to confirm we were in the true lumen. We then predilated the vessel with a 6 x 200 [place] balloon for three-minute inflations. Following this, a 7 x 150 Innova stent was placed and postdilated first with a 7 x 100 [place] balloon then a 7 x 40 [place] balloon and then a 6 x 40 high pressure conquest balloon. After predilation of the stenosis and occlusion in the SFA, we did have some flow with significant expected dissection in the area of heaviest plaque. No sterilization noted. After stenting, the area of heaviest plaque and occlusion at Pawel's canal was still nearly occluded and after post-dilation with a 7 x 100 balloon, we were not able to completely open the stent. We tried with a shorter balloon, 7 x 40, hoping for an increased pressure focally at that area, but also this was unsuccessful. We then tried a high-pressure balloon, 6 x 40 because we did not have a 7 x 40 available, but this only slightly improved the luminal diameter. Unfortunately, due to the really bulky calcified plaque this may be the best endovascular flow we were able to give him. There was no extravasation embolization or dissection noted after treating the SFA. We then advanced the wire down to the tibials and were able to first select the peroneal artery and then super selected the branch that was feeding the AV malformation. Contrast injection confirmed we were in the branch and not going to embolize the distal vessel. We then selected a 4 x 3 coil and deployed this, confirmed that there was still flow with an arteriogram, then added a 5 x 3 coil. This dramatically reduced flow through the vessel although a small amount of flow was still present, but this should thrombosis in a bit of time. There was still significant flown to the AV malformation so we selected the left posterior tibial artery and then the branch off of the posterior tibial artery and a quick contrast injection confirmed we were in the branch and not going to embolize the main vessel leading to the foot. We coiled this vessel with a 5 x 3 haydee coil and following this there was a significant reduction inflow into the AV fistula and improve flow into the main three-vessel tibial runoff. I suspect there are several feeding vessels into the AV malformation, and although we did not address all of them, we certainly improved flow to the foot by coiling the main source of arterial inflow. For now, we elected not to treat the aorta iliac inflow stenoses and the right iliac aneurysm. An option for the future would be covered kissing stats to minimize risk of extravasation due to heavy dense plaque in the area, and also to cover the aneurysm and exclude that as well. We exchanges sheath over wire for short 6 Jordanian sheath and flushed the sheath with saline. A minx closure device was deployed at the left common femoral artery with good hemostasis. Pressure was held and sterile dressings were applied. The patient was then taken to recovery in stable condition. He tolerated the sedation and the procedure well. ESTIMATED BLOOD LOSS: Approximately 5 mL. COMPLICATIONS: None PLAN: It is okay for the patient to resume home diet and medications. We will prescribe Plavix for 60 days. He can start this in the morning. We plan to see him back in a week to check his groin access site and see how he is doing. 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 If we do not need to proceed with this, the patient's symptoms are resolved with our procedure today, I think we will hold off for now. If we place kissing stents, we will lose her ability to go up and over for any re-intervention we may need on the right leg. However, if he still has significant symptoms and limited blood flow on his postprocedure arterial duplex, this may become necessary. We will decide this on an as-needed basis. We appreciate the opportunity to participate in the care of this patient. CALLIE GURROLA MD Nov 08, 2020 10:21
[2020-11-08 13:25] VITALS: BP 167/83
== END ==
LOC: M IRPRO 06:11
PROVIDERS: ATTEND Surgery Vascular Surgery
DX: I70.211 Atherosclerosis of native arteries of extremities with intermittent claudication, right leg (principal); I70.92 Chronic total occlusion of artery of the extremities; Z79.82 Long term (current) use of aspirin; Z79.899 Other long term (current) drug therapy; Z86.010 Personal history of colon polyps; Z87.891 Personal history of nicotine dependence
CPT/HCPCS: 37226; 37242; 75630; 75774; 80048; 85027; 99152; 99153; C1725; C1760; C1769; C1876; C1887; C1894; J1644; J2250; J3010; Q9967

== ENCOUNTER → 2020-12-19 | Outpatient (CLI) | payer MEDICARE, OTHER ==
[~2020-12-19] MED LIST changes: -ISOVUE-300 61% 50ML VIAL As Ordered ONE; -LIDOCAINE 1% MDV 20ML VIAL As Ordered ONE; -MIDAZOLAM INJ 2MG/2ML VIAL (J2250 PER 1MG) As Ordered ONE; -fentaNYL 100 MCG/2 ML INJECTION (J3010) As Ordered ONE
--- NOTE | 2020-12-19 11:07 | REP ---
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 History of right mid to distal superficial femoral artery stenting. COMPARISON: Comparison study September 18, 2020.. TECHNIQUE: Bilateral lower extremity arterial Doppler ultrasound. FINDINGS: Ankle brachial indices could not be calculated due to noncompressible vessels. Moderate plaquing is seen throughout the right extremity with calcified calf vessels. Improved biphasic and triphasic waveforms are noted throughout the right lower extremity. Monophasic waveforms are noted in the tibial-peroneal trunk and proximal posterior tibial artery on the right. At the origin of the stent PSV is 158 cm/S with triphasic waveforms. The distal stent velocity is 141 cm/S. Elevated diastolic flow is observed in the waveform of the proximal posterior tibial artery and trunk on the right, possibly related to the arteriovenous fistula. Moderate calcific plaquing is observed in the left lower extremity. There is a 3.5-1 velocity ratio stenosis in the SFA on the left. Triphasic and biphasic arterial waveforms are noted in the left lower extremity. Right lower extremity arterial Doppler velocity chart: Right WELL CONTROL INSTRUCTOR PSV 128 cm/S Profundal 130 Proximal SFA 110 Mid SFA 130 Distal SFA 126 Popliteal 104 Proximal SORIN 52 Tibial-peroneal trunk 70 Proximal PALEONTOLOGY TEACHER 66 Distal PALEONTOLOGY TEACHER 69 Distal SORIN 87 Left lower extremity arterial Doppler velocity chart: Left WELL CONTROL INSTRUCTOR PSV 113 cm/S Profundal 75 Proximal SFA 85 Mid SFA 84/296 Distal SFA 121 Popliteal 128 Proximal SORIN 60 Tibial-peroneal trunk 68 Proximal PALEONTOLOGY TEACHER 83 Distal PALEONTOLOGY TEACHER 55 Distal SORIN 43 IMPRESSION: Atherosclerotic disease as above. There is evidence of a 3.5-1 velocity stenosis in the superficial femoral artery on the left. Improved waveforms and velocities on the right post stenting. <Electronically signed by Pacheco Mcallister > 12/19/20 [id number]
== END ==
LOC: M RAD 09:24
PROVIDERS: ATTEND Physician Assistant
DX: I70.213 Atherosclerosis of native arteries of extremities with intermittent claudication, bilateral legs (principal)

== ENCOUNTER → 2021-01-05 | Outpatient (REF) | payer MEDICARE, OTHER ==
[2021-01-05 14:03] LABS: HEMOGLOBIN A1c 7.3 %
[2021-01-05 14:14] LABS: ALBUMIN 4.2 GM/DL (3.2-5.2); ALT/SGPT 45 U/L (12-78); BILIRUBIN,TOTAL 0.3 MG/DL (0.2-1.0); BLOOD UREA NITROGEN 25 MG/DL (7-18); CALCIUM LEVEL 9.8 MG/DL (8.8-10.2); CARBON DIOXIDE LEVEL 28 MEQ/L (21-32); CHLORIDE LEVEL 102 MEQ/L (98-107); GLOMERULAR FILTRATION RATE > 60.0 (>42); GLUCOSE, FASTING 204 MG/DL (70-100); POTASSIUM SERUM 4.3 MEQ/L (3.5-5.1); SODIUM LEVEL 137 MEQ/L (136-145); TOTAL PROTEIN 7.2 GM/DL (6.4-8.2)
== END ==
LOC: M LABDRWAD 12:36
PROVIDERS: ATTEND Nurse Practitioner Family
DX: E11.69 Type 2 diabetes mellitus with other specified complication (principal)

== ENCOUNTER → 2021-06-13 | Outpatient (REF) | payer MEDICARE, OTHER | LOC: M LAB REF 12:59 | PROVIDERS: ATTEND Nurse Practitioner Family | DX: E83.42 Hypomagnesemia (principal) ==

== ENCOUNTER → 2021-07-12 | Outpatient (REF) | payer MEDICARE, OTHER ==
[2021-07-12 16:02] LABS: BLOOD UREA NITROGEN 22 MG/DL (7-18); CALCIUM LEVEL 9.9 MG/DL (8.8-10.2); CARBON DIOXIDE LEVEL 31 MEQ/L (21-32); CHLORIDE LEVEL 101 MEQ/L (98-107); CREATININE FOR GFR 1.14 MG/DL (0.70-1.30); GLOMERULAR FILTRATION RATE > 60.0 (>42); GLUCOSE, FASTING 204 MG/DL (70-100); POTASSIUM SERUM 4.3 MEQ/L (3.5-5.1); SODIUM LEVEL 136 MEQ/L (136-145)
[2021-07-12 16:46] LABS: HEMOGLOBIN A1c 7.6 %
== END ==
LOC: M LABDRWAD 14:38
PROVIDERS: ATTEND Nurse Practitioner Family
DX: E11.69 Type 2 diabetes mellitus with other specified complication (principal)

== ENCOUNTER → 2021-10-23 | Outpatient (REF) | payer MEDICARE, OTHER ==
[2021-10-23 13:19] LABS: HEMOGLOBIN A1c 7.3 %
== END ==
LOC: M LABDRWAD 12:15
PROVIDERS: ATTEND Nurse Practitioner Family
DX: E11.69 Type 2 diabetes mellitus with other specified complication (principal)

== ENCOUNTER → 2022-01-09 | Outpatient (REF) | payer MEDICARE, OTHER ==
[~2022-01-09] MED LIST changes: -D31000TA2 PO; +VITA100093 PO
[2022-01-10 13:09] LABS: ALT/SGPT 58 U/L (12-78); BILIRUBIN,TOTAL 0.4 MG/DL (0.2-1.0); BLOOD UREA NITROGEN 29 MG/DL (7-18); CALCIUM LEVEL 10.7 MG/DL (8.8-10.2); CARBON DIOXIDE LEVEL 30 MEQ/L (21-32); CHLORIDE LEVEL 102 MEQ/L (98-107); CHOLESTEROL LEVEL 149 MG/DL (<200); CHOLESTEROL RISK RATIO 3.921 (<5); CREATININE FOR GFR 1.12 MG/DL (0.70-1.30); GLOMERULAR FILTRATION RATE > 60.0 (>42); GLUCOSE, FASTING 192 MG/DL (70-100); HDL CHOLESTEROL 38 MG/DL (>40); LDL CHOLESTEROL 45 MG/DL (<100); NON-HDL-C 111 MG/DL; POTASSIUM SERUM 4.1 MEQ/L (3.5-5.1); SODIUM LEVEL 137 MEQ/L (136-145); TOTAL PROTEIN 7.4 GM/DL (6.4-8.2); TRIGLYCERIDES LEVEL 329 MG/DL (<150)
[2022-01-10 13:42] LABS: CREATININE, URINE 87.9 MG/DL; MAU/CREAT RATIO 137.6 MCG/MG (0.0-30.0)
[2022-01-10 13:51] LABS: HEMOGLOBIN A1c 7.9 %
== END ==
LOC: M LABDRWAD 12:43
PROVIDERS: ATTEND Nurse Practitioner Family
DX: E11.69 Type 2 diabetes mellitus with other specified complication (principal); I10 Essential (primary) hypertension

== ENCOUNTER → 2022-04-11 | Outpatient (CLI) | payer MEDICARE, OTHER ==
[2022-04-11 15:39] LABS: HEMOGLOBIN A1c 7.1 %
== END ==
LOC: M ADAMS 10:02
PROVIDERS: ATTEND Nurse Practitioner Family
DX: E11.69 Type 2 diabetes mellitus with other specified complication (principal)

== ENCOUNTER → 2022-07-22 | Outpatient (CLI) | payer MEDICARE, OTHER ==
[2022-07-22 17:37] LABS: HEMOGLOBIN A1c 7.3 %
== END ==
LOC: M ADAMS 10:01
PROVIDERS: ATTEND Nurse Practitioner Family
DX: E11.69 Type 2 diabetes mellitus with other specified complication (principal)

== ENCOUNTER → 2022-08-28 | Outpatient (REF) | payer MEDICARE, OTHER | LOC: M SFHCADAM 08:52 | PROVIDERS: ATTEND Physician Assistant | DX: Z12.5 Encounter for screening for malignant neoplasm of prostate (principal) ==

== ENCOUNTER 2022-09-12 02:34 | Inpatient (IN) | payer MEDICARE, OTHER ==
[~2022-09-12] VITALS: Ht 180.3 cm; Wt 102.6 kg
[~2022-09-12 02:34] MED LIST changes: -FINA5TAB2; +FINA5TAB2 PO
[2022-09-12] MEDS ORDERED: NS 500 ML IV ONE (03:00)
[2022-09-12] MEDS ORDERED: ACETAMINOPHEN TAB 650MG DOSE (2X325MG) PO ONE ×2 (03:05→10:55)
[2022-09-12 03:21] LABS: BASO % 0.3 % (0.0-1.0); EOS % 0.2 % (0.0-3.0); HEMOGLOBIN 13.7 g/dl (13.5-17.5); LYMPH # 0.6 10^3/uL (1.5-5.0); LYMPH % 4.4 % (24.0-44.0); MEAN CORPUSCULAR HEMOGLOBIN 33.9 pg (27.0-33.0); MEAN CORPUSCULAR HGB CONC 35.1 g/dl (32.0-36.5); MEAN CORPUSCULAR VOLUME 96.5 fl (80.0-96.0); MONO # 1.1 10^3/uL (0.0-0.8); MONO % 8.4 % (2.0-8.0); NEUTROPHILS # 11.5 10^3/uL (1.5-8.5); NEUTROPHILS % 86.2 % (36.0-66.0); PLATELET COUNT, AUTOMATED 154 10^3/uL (150-450); RED BLOOD COUNT 4.04 10^6/uL (4.30-6.10); WHITE BLOOD COUNT 13.3 10^3/uL (4.0-10.0)
[2022-09-12 03:40] LABS: INR 0.98; PROTHROMBIN TIME 13.2 SECONDS (12.5-14.5)
[2022-09-12 03:41] LABS: PARTIAL THROMBOPLASTIN TIME 31.2 SECONDS (24.8-34.2)
[2022-09-12 04:17] LABS: ALBUMIN 3.4 GM/DL (3.2-5.2); BILIRUBIN,DIRECT 0.2 MG/DL (0.0-0.2); BILIRUBIN,TOTAL 0.5 MG/DL (0.2-1.0); CALCIUM LEVEL 9.7 MG/DL (8.8-10.2); CREATININE FOR GFR 1.34 MG/DL (0.70-1.30); GLOMERULAR FILTRATION RATE 54.9 (>42); MB/CK RELATIVE INDEX 1.11 (< OR =4); POTASSIUM SERUM 4.5 MEQ/L (3.5-5.1)
[2022-09-12 05:45] LABS: CK-MB VALUE MASS < 1.0 NG/ML (<3.6); CPK CREATINE PHOSPHOKINASE 79 U/L (39-308); MB/CK RELATIVE INDEX 1.27 (< OR =4)
[2022-09-12] MEDS ORDERED: cefTRIAXone SOD 2 GM in D5W MINI-BAG PLUS 50 ML IV ONE (10:00)
[2022-09-12] MEDS ORDERED: ONDANSETRON 4MG 2ML VIAL IV PRN (11:45)
[2022-09-12] MEDS: **hydrALAZINE HCL** 25 MG TAB PO SCH ×2 (12:00→18:19)
[2022-09-12] MEDS ORDERED: GLUCAGON INJ 1MG VIAL SC PRN (12:10)
[2022-09-12] MEDS ORDERED: GLUCOSE 4GM CHEW TABLET PO PRN (12:10)
[2022-09-12] MEDS ORDERED: DEXTROSE 50% 50 ML SYRINGE IV PRN (12:10)
[2022-09-12] MEDS ORDERED: ASPI81CH33 PO (13:09)
[2022-09-12] MEDS ORDERED: DIPH25CA32 PO (13:09)
[2022-09-12] MEDS ORDERED: AMLO1TAB25 PO (13:09)
[2022-09-12] MEDS ORDERED: DOCU100C16 PO (13:09)
[2022-09-12] MEDS ORDERED: TAMS1CAP17 PO (13:09)
[2022-09-12] MEDS ORDERED: RAMI1CAP26 PO (13:09)
[2022-09-12] MEDS ORDERED: CLOP75TA99 PO (13:09)
[2022-09-12] MEDS ORDERED: ATOR80TA59 PO (13:09)
[2022-09-12] MEDS ORDERED: HOME MED LIST COMPLETE! XX SCH (13:10)
[2022-09-12] MEDS: IPRATROPIUM 0.5MG/ALBUTEROL 2.5MG INH SOL UD 3ML (DUONEB) NEB SCH ×2 (14:00→17:38)
[2022-09-12 14:28] VITALS: BP 186/88
[2022-09-12] MEDS: DOXYCYCLINE HYCLATE 100 MG in D5W MINI-BAG PLUS 100 ML IV SCH (15:05)
[2022-09-12] MEDS: HEPARIN SOD (PORCINE) 5000UNITS/ML 1ML VIAL/SYRINGE SQ SCH ×2 (15:06→21:35)
[2022-09-12] MEDS ORDERED: **hydrALAZINE HCL** 25 MG TAB PO ONE (15:35)
[2022-09-12] MEDS ORDERED: diphenhydrAMINE 25MG CAP PO PRN (15:50)
[2022-09-12 16:00] VITALS: BP 160/72
[2022-09-12] MEDS: INSULIN LISPRO (NovoLOG) PER UNIT SC SCH ×2 (17:30→21:00)
[2022-09-12 20:06] VITALS: BP 133/70
[2022-09-12] MEDS: METOPROLOL TART 50 MG TAB PO SCH (21:34)
[2022-09-13] VITALS (8 sets, daily range): BP systolic 133–192; BP diastolic 58–81
[2022-09-13] MEDS: **hydrALAZINE HCL** 25 MG TAB PO SCH ×2 (00:44→05:55)
[2022-09-13] MEDS: IPRATROPIUM 0.5MG/ALBUTEROL 2.5MG INH SOL UD 3ML (DUONEB) NEB SCH ×4 (02:00→19:42)
[2022-09-13] MEDS: DOXYCYCLINE HYCLATE 100 MG in D5W MINI-BAG PLUS 100 ML IV SCH (02:09)
[2022-09-13] MEDS: HEPARIN SOD (PORCINE) 5000UNITS/ML 1ML VIAL/SYRINGE SQ SCH ×3 (05:55→21:41)
[2022-09-13 06:15] LABS: BASO % 0.2 % (0.0-1.0); EOS % 0.1 % (0.0-3.0); HEMATOCRIT 37.1 % (42.0-52.0); HEMOGLOBIN 12.8 g/dl (13.5-17.5); LYMPH # 1.3 10^3/uL (1.5-5.0); LYMPH % 10.8 % (24.0-44.0); MEAN CORPUSCULAR HEMOGLOBIN 33.3 pg (27.0-33.0); MEAN CORPUSCULAR HGB CONC 34.5 g/dl (32.0-36.5); MEAN CORPUSCULAR VOLUME 96.6 fl (80.0-96.0); MONO % 7.8 % (2.0-8.0); NEUTROPHILS # 9.9 10^3/uL (1.5-8.5); NEUTROPHILS % 80.8 % (36.0-66.0); PLATELET COUNT, AUTOMATED 147 10^3/uL (150-450); RED BLOOD COUNT 3.84 10^6/uL (4.30-6.10); WHITE BLOOD COUNT 12.3 10^3/uL (4.0-10.0)
[2022-09-13 06:52] LABS: BLOOD UREA NITROGEN 18 MG/DL (7-18); CALCIUM LEVEL 9.2 MG/DL (8.8-10.2); CARBON DIOXIDE LEVEL 25 MEQ/L (21-32); CHLORIDE LEVEL 101 MEQ/L (98-107); CREATININE FOR GFR 0.99 MG/DL (0.70-1.30); GLOMERULAR FILTRATION RATE > 60.0 (>42); GLUCOSE, FASTING 209 MG/DL (70-100); MAGNESIUM LEVEL 1.7 MG/DL (1.8-2.4); PHOSPHORUS LEVEL 2.2 MG/DL (2.5-4.9); POTASSIUM SERUM 3.9 MEQ/L (3.5-5.1); SODIUM LEVEL 133 MEQ/L (136-145)
[2022-09-13] MEDS: INSULIN LISPRO (NovoLOG) PER UNIT SC SCH ×4 (08:37→20:08)
[2022-09-13] MEDS: FINASTERIDE 5MG TAB PO SCH (08:38)
[2022-09-13] MEDS: CLOPIDOGREL 75 MG TAB PO SCH (08:39)
[2022-09-13] MEDS: ATORVASTATIN 20 MG TAB PO SCH (08:39)
[2022-09-13] MEDS: FLUoxetine 20MG CAP PO SCH (08:39)
[2022-09-13] MEDS: TAMSULOSIN 0.4 MG CAP PO SCH (08:39)
[2022-09-13] MEDS: ASPIRIN 81 MG CHEW TABLET PO SCH (08:39)
[2022-09-13] MEDS: DOCUSATE SODIUM 100MG CAPSULE PO SCH (08:39)
[2022-09-13] MEDS: METOPROLOL TART 50 MG TAB PO SCH ×2 (08:40→20:23)
[2022-09-13] MEDS ORDERED: ENOXAPARIN 40MG/0.4ML SYRINGE (J1650 PER 10MG) SC SCH (09:00)
[2022-09-13] MEDS: DOXYCYCLINE HYCLATE 100MG TABLET PO SCH ×2 (09:17→20:23)
[2022-09-13] MEDS ORDERED: MAGNESIUM OXIDE 400MG TAB (MAG-OX) PO ONE (11:45)
[2022-09-13] MEDS: cefTRIAXone SOD 1 GM in D5W MINI-BAG PLUS 50 ML IV SCH (12:17)
[2022-09-13] MEDS ORDERED: SODIUM PHOSPHATE INJ 20 MMOL in D5W 250 ML IV ONE (14:00)
[2022-09-13] MEDS: ramipriL 5 MG CAP PO SCH (20:22)
[2022-09-13] MEDS ORDERED: ramipriL 5 MG CAP PO SCH (21:00)
[2022-09-14] VITALS: BP 152/70
[2022-09-14] MEDS: IPRATROPIUM 0.5MG/ALBUTEROL 2.5MG INH SOL UD 3ML (DUONEB) NEB SCH ×4 (02:00→20:16)
[2022-09-14 04:00] VITALS: BP 158/60
[2022-09-14] MEDS: HEPARIN SOD (PORCINE) 5000UNITS/ML 1ML VIAL/SYRINGE SQ SCH ×3 (05:27→21:10)
[2022-09-14 05:54] LABS: BASO % 0.3 % (0.0-1.0); EOS # 0.1 10^3/uL (0.0-0.5); EOS % 1.8 % (0.0-3.0); HEMATOCRIT 36.4 % (42.0-52.0); HEMOGLOBIN 12.4 g/dl (13.5-17.5); LYMPH # 1.2 10^3/uL (1.5-5.0); LYMPH % 14.5 % (24.0-44.0); MEAN CORPUSCULAR HEMOGLOBIN 33.1 pg (27.0-33.0); MEAN CORPUSCULAR HGB CONC 34.1 g/dl (32.0-36.5); MEAN CORPUSCULAR VOLUME 97.1 fl (80.0-96.0); MONO # 0.6 10^3/uL (0.0-0.8); MONO % 8.1 % (2.0-8.0); NEUTROPHILS % 74.8 % (36.0-66.0); PLATELET COUNT, AUTOMATED 165 10^3/uL (150-450); RED BLOOD COUNT 3.75 10^6/uL (4.30-6.10)
[2022-09-14 06:28] LABS: BLOOD UREA NITROGEN 23 MG/DL (7-18); CALCIUM LEVEL 9.1 MG/DL (8.8-10.2); CARBON DIOXIDE LEVEL 24 MEQ/L (21-32); CHLORIDE LEVEL 104 MEQ/L (98-107); GLOMERULAR FILTRATION RATE > 60.0 (>42); GLUCOSE, FASTING 195 MG/DL (70-100); MAGNESIUM LEVEL 1.9 MG/DL (1.8-2.4); PHOSPHORUS LEVEL 2.4 MG/DL (2.5-4.9); POTASSIUM SERUM 4.1 MEQ/L (3.5-5.1); SODIUM LEVEL 137 MEQ/L (136-145)
[2022-09-14 08:00] VITALS: BP 139/63
[2022-09-14] MEDS: K-PHOS ORIGINAL (POT.ACID PHOSPHATE) 500MG TAB PO SCH ×2 (09:01→20:37)
[2022-09-14] MEDS: DOCUSATE SODIUM 100MG CAPSULE PO SCH (09:01)
[2022-09-14] MEDS: ATORVASTATIN 20 MG TAB PO SCH (09:01)
[2022-09-14] MEDS: ASPIRIN 81 MG CHEW TABLET PO SCH (09:01)
[2022-09-14] MEDS: FINASTERIDE 5MG TAB PO SCH (09:01)
[2022-09-14] MEDS: INSULIN LISPRO (NovoLOG) PER UNIT SC SCH ×4 (09:01→21:00)
[2022-09-14] MEDS: METOPROLOL TART 50 MG TAB PO SCH ×2 (09:02→20:38)
[2022-09-14] MEDS: TAMSULOSIN 0.4 MG CAP PO SCH (09:02)
[2022-09-14] MEDS: CLOPIDOGREL 75 MG TAB PO SCH (09:02)
[2022-09-14] MEDS: FLUoxetine 20MG CAP PO SCH (09:02)
[2022-09-14] MEDS: DOXYCYCLINE HYCLATE 100MG TABLET PO SCH ×2 (09:02→20:38)
[2022-09-14] MEDS ORDERED: ISOVUE-370 76% 100ML VIAL As Ordered ONE (09:19)
[2022-09-14] MEDS ORDERED: FLUBLOK(EGG FREE)(QUAD)INFLUENZA VACC 0.5ML SYRINGE 18YRS & OLDER IM.IMMUN ONE (10:00)
[2022-09-14] MEDS: cefTRIAXone SOD 1 GM in D5W MINI-BAG PLUS 50 ML IV SCH (10:18)
[2022-09-14 11:43] VITALS: BP 131/63
[2022-09-14] MEDS ORDERED: ACETAMINOPHEN TAB 650MG DOSE (2X325MG) PO ONE (15:00)
[2022-09-14 16:00] VITALS: BP 164/82
[2022-09-14 20:00] VITALS: BP 165/70
[2022-09-14] MEDS: ramipriL 5 MG CAP PO SCH (20:37)
[2022-09-15] MEDS: IPRATROPIUM 0.5MG/ALBUTEROL 2.5MG INH SOL UD 3ML (DUONEB) NEB SCH ×2 (01:44→08:59)
[2022-09-15 04:00] VITALS: BP 172/70
[2022-09-15] MEDS: HEPARIN SOD (PORCINE) 5000UNITS/ML 1ML VIAL/SYRINGE SQ SCH (05:20)
[2022-09-15 05:46] LABS: HEMATOCRIT 36.8 % (42.0-52.0); HEMOGLOBIN 12.9 g/dl (13.5-17.5); MEAN CORPUSCULAR HEMOGLOBIN 33.5 pg (27.0-33.0); MEAN CORPUSCULAR HGB CONC 35.1 g/dl (32.0-36.5); MEAN CORPUSCULAR VOLUME 95.6 fl (80.0-96.0); PLATELET COUNT, AUTOMATED 170 10^3/uL (150-450); RED BLOOD COUNT 3.85 10^6/uL (4.30-6.10); WHITE BLOOD COUNT 6.4 10^3/uL (4.0-10.0)
[2022-09-15 06:20] LABS: BLOOD UREA NITROGEN 21 MG/DL (7-18); CALCIUM LEVEL 9.8 MG/DL (8.8-10.2); CARBON DIOXIDE LEVEL 23 MEQ/L (21-32); CHLORIDE LEVEL 105 MEQ/L (98-107); CREATININE FOR GFR 0.98 MG/DL (0.70-1.30); GLOMERULAR FILTRATION RATE > 60.0 (>42); GLUCOSE, FASTING 221 MG/DL (70-100); PHOSPHORUS LEVEL 2.5 MG/DL (2.5-4.9); SODIUM LEVEL 134 MEQ/L (136-145)
[2022-09-15 07:47] VITALS: BP 162/70
[2022-09-15] MEDS: INSULIN LISPRO (NovoLOG) PER UNIT SC SCH (08:20)
[2022-09-15] MEDS ORDERED: RAMI1CAP26 PO (08:47)
[2022-09-15] MEDS ORDERED: COMBAER6 INH ×2 (08:47→10:30)
[2022-09-15] MEDS ORDERED: DOXY100T PO (08:47)
[2022-09-15] MEDS ORDERED: CEFD300C41 PO (08:47)
[2022-09-15 08:50] VITALS: BP 162/70
[2022-09-15] MEDS: METOPROLOL TART 50 MG TAB PO SCH (08:50)
[2022-09-15] MEDS: DOXYCYCLINE HYCLATE 100MG TABLET PO SCH (09:26)
[2022-09-15] MEDS: ASPIRIN 81 MG CHEW TABLET PO SCH (09:26)
[2022-09-15] MEDS: DOCUSATE SODIUM 100MG CAPSULE PO SCH (09:26)
[2022-09-15] MEDS: ATORVASTATIN 20 MG TAB PO SCH (09:26)
[2022-09-15] MEDS: FLUoxetine 20MG CAP PO SCH (09:27)
[2022-09-15] MEDS: FINASTERIDE 5MG TAB PO SCH (09:27)
[2022-09-15] MEDS: TAMSULOSIN 0.4 MG CAP PO SCH (09:27)
[2022-09-15 09:43] VITALS: BP 145/70
[2022-09-17 16:12] LABS: BODY FLUID CULTURE Not indicated. (.); LEGIONELLA ANTIGEN URINE Negative (Negative); ORGANISM ID Not indicated. (.); SPECIMEN SOURCE Urine (.); URINE STREP PNEUMONIAE ANTIGEN Negative (Negative)
== END 2022-09-15 11:41 | disposition home or self-care (01) | DRG 194 ==
LOC: M ED 02:34 → EDBD 02:34 → M ED INP 11:40 → ENRESERV 12:34 → M PCU 14:17
PROVIDERS: ADMIT Internal Medicine; ATTEND Internal Medicine
DX: J18.9 Pneumonia, unspecified organism (principal); N17.9 Acute kidney failure, unspecified; I25.10 Atherosclerotic heart disease of native coronary artery without angina pectoris; I10 Essential (primary) hypertension; E78.5 Hyperlipidemia, unspecified; I73.9 Peripheral vascular disease, unspecified; E11.51 Type 2 diabetes mellitus with diabetic peripheral angiopathy without gangrene; N40.0 Benign prostatic hyperplasia without lower urinary tract symptoms; F39 Unspecified mood [affective] disorder; Z95.5 Presence of coronary angioplasty implant and graft; Z95.828 Presence of other vascular implants and grafts; F17.290 Nicotine dependence, other tobacco product, uncomplicated; I16.0 Hypertensive urgency; Z79.82 Long term (current) use of aspirin; Z79.84 Long term (current) use of oral hypoglycemic drugs; Z79.899 Other long term (current) drug therapy; Z20.822 Contact with and (suspected) exposure to COVID-19; D64.9 Anemia, unspecified

== ENCOUNTER → 2022-09-18 | Outpatient (CLI) | payer MEDICARE, OTHER ==
[~2022-09-18] MED LIST changes: +AMLO1TAB25 PO; +ASPI81CH33 PO; +ATOR80TA59 PO; +CEFD300C41 PO; +CLOP75TA99 PO; +COMBAER6 INH; +DIPH25CA32 PO; +DOCU100C16 PO; +DOXY100T PO; +RAMI1CAP26 PO; +TAMS1CAP17 PO
== END ==
LOC: M LABDRWAD 15:13
PROVIDERS: ATTEND Nurse Practitioner Family
DX: D64.9 Anemia, unspecified (principal)

== ENCOUNTER → 2022-09-19 | Outpatient (CLI) | payer MEDICARE, OTHER ==
[2022-09-19 14:00] LABS: BASO % 0.5 % (0.0-1.0); EOS # 0.3 10^3/uL (0.0-0.5); EOS % 3.6 % (0.0-3.0); HEMATOCRIT 39.2 % (42.0-52.0); HEMOGLOBIN 13.2 g/dl (13.5-17.5); LYMPH # 1.4 10^3/uL (1.5-5.0); LYMPH % 18.2 % (24.0-44.0); MEAN CORPUSCULAR HEMOGLOBIN 32.8 pg (27.0-33.0); MEAN CORPUSCULAR HGB CONC 33.7 g/dl (32.0-36.5); MEAN CORPUSCULAR VOLUME 97.3 fl (80.0-96.0); MONO # 0.8 10^3/uL (0.0-0.8); MONO % 11.1 % (2.0-8.0); NEUTROPHILS % 65.8 % (36.0-66.0); PLATELET COUNT, AUTOMATED 267 10^3/uL (150-450); RED BLOOD COUNT 4.03 10^6/uL (4.30-6.10); WHITE BLOOD COUNT 7.6 10^3/uL (4.0-10.0)
[2022-09-19 14:19] LABS: ALT/SGPT 128 U/L (12-78); BILIRUBIN,TOTAL 0.4 MG/DL (0.2-1.0); BLOOD UREA NITROGEN 20 MG/DL (7-18); CALCIUM LEVEL 9.4 MG/DL (8.8-10.2); CARBON DIOXIDE LEVEL 28 MEQ/L (21-32); CHLORIDE LEVEL 104 MEQ/L (98-107); CREATININE FOR GFR 1.07 MG/DL (0.70-1.30); GLOMERULAR FILTRATION RATE > 60.0 (>42); GLUCOSE, FASTING 171 MG/DL (70-100); POTASSIUM SERUM 4.7 MEQ/L (3.5-5.1); SODIUM LEVEL 137 MEQ/L (136-145)
== END ==
LOC: M LABDRWAD 11:23
PROVIDERS: ATTEND Nurse Practitioner Family
DX: D64.9 Anemia, unspecified (principal)

== ENCOUNTER 2022-09-27 17:49 | Emergency (ER) | payer MEDICARE, OTHER ==
[~2022-09-27] VITALS: Ht 180.3 cm; Wt 107.3 kg
[2022-09-27 18:06] VITALS: BP 180/66
[2022-09-27] MEDS ORDERED: TETRACAINE 0.5% OPHTH SOLN 4ML OU ONE (19:25)
[2022-09-27] MEDS ORDERED: ERYTHROMYCIN OPHTH OINT OU ONE (20:05)
[2022-09-27] MEDS ORDERED: ERYTOIN8 OU (20:11)
== END 2022-09-27 20:29 | disposition home or self-care (01) ==
LOC: M ED 17:49
DX: G89.18 Other acute postprocedural pain (principal); S05.01XA Injury of conjunctiva and corneal abrasion without foreign body, right eye, initial encounter; S05.02XA Injury of conjunctiva and corneal abrasion without foreign body, left eye, initial encounter; Z79.899 Other long term (current) drug therapy; Z79.82 Long term (current) use of aspirin

== ENCOUNTER 2022-10-09 17:12 | Emergency (ER) | payer MEDICARE, OTHER ==
[~2022-10-09] VITALS: Ht 180.3 cm; Wt 110.5 kg
[~2022-10-09 17:12] MED LIST changes: +ERYTOIN8 OU
[2022-10-09 18:46] LABS: BASO % 0.5 % (0.0-1.0); EOS # 0.1 10^3/uL (0.0-0.5); EOS % 1.6 % (0.0-3.0); HEMATOCRIT 37.8 % (42.0-52.0); HEMOGLOBIN 13.3 g/dl (13.5-17.5); LYMPH # 1.4 10^3/uL (1.5-5.0); LYMPH % 23.3 % (24.0-44.0); MEAN CORPUSCULAR HEMOGLOBIN 33.1 pg (27.0-33.0); MEAN CORPUSCULAR HGB CONC 35.2 g/dl (32.0-36.5); MONO # 0.8 10^3/uL (0.0-0.8); MONO % 12.6 % (2.0-8.0); NEUTROPHILS # 3.8 10^3/uL (1.5-8.5); NEUTROPHILS % 61.7 % (36.0-66.0); PLATELET COUNT, AUTOMATED 146 10^3/uL (150-450); RED BLOOD COUNT 4.02 10^6/uL (4.30-6.10); WHITE BLOOD COUNT 6.2 10^3/uL (4.0-10.0)
[2022-10-09 19:16] LABS: LIPASE 58 U/L (12-53)
[2022-10-09 19:18] LABS: BILIRUBIN,DIRECT 0.1 MG/DL (<0.4)
[2022-10-09 19:19] LABS: ALBUMIN 3.7 G/DL (3.2-5.2); ALKALINE PHOSPHATASE 52 U/L (46-116); ALT/SGPT 34 U/L (7.0-40); AST/SGOT 20 U/L (<34); BILIRUBIN,TOTAL 0.4 MG/DL (0.3-1.2); BLOOD UREA NITROGEN 21 MG/DL (9-23); CALCIUM LEVEL 9.6 MG/DL (8.3-10.6); CARBON DIOXIDE LEVEL 26 MMOL/L (20-31); CHLORIDE LEVEL 101 MMOL/L (98-107); GLOMERULAR FILTRATION RATE > 60.0 (>42); GLUCOSE, FASTING 207 MG/DL (74-106); POTASSIUM SERUM 4.2 MMOL/L (3.5-5.1); SODIUM LEVEL 137 MMOL/L (136-145); TOTAL PROTEIN 6.8 G/DL (5.7-8.2)
[2022-10-09 20:12] LABS: MB/CK RELATIVE INDEX 1.4 (< OR =4)
[2022-10-09] MEDS ORDERED: ONDA4TAB6 PO (20:48)
[2022-10-09 21:15] VITALS: BP 149/79
== END 2022-10-09 21:32 | disposition home or self-care (01) ==
LOC: M ED 17:12 → EDBD 17:12 → M ED 21:32
DX: R11.2 Nausea with vomiting, unspecified (principal); R69 Illness, unspecified; R91.8 Other nonspecific abnormal finding of lung field; N20.0 Calculus of kidney; I25.2 Old myocardial infarction; E11.9 Type 2 diabetes mellitus without complications; I10 Essential (primary) hypertension; F32.9 Major depressive disorder, single episode, unspecified; H35.30 Unspecified macular degeneration; Z95.5 Presence of coronary angioplasty implant and graft; Z79.84 Long term (current) use of oral hypoglycemic drugs; Z79.82 Long term (current) use of aspirin; Z79.899 Other long term (current) drug therapy; Z79.4 Long term (current) use of insulin

== ENCOUNTER → 2023-01-24 | Outpatient (CLI) | payer MEDICARE, OTHER ==
[~2023-01-24] MED LIST changes: +DIPH-435 PO; -DIPH25CA32 PO; +ONDA4TAB6 PO
[2023-01-24 13:37] LABS: BASO % 0.7 % (0.0-1.0); EOS # 0.1 10^3/uL (0.0-0.5); EOS % 2.6 % (0.0-3.0); HEMATOCRIT 39.4 % (42.0-52.0); HEMOGLOBIN 13.5 g/dl (13.5-17.5); LYMPH # 1.5 10^3/uL (1.5-5.0); LYMPH % 26.9 % (24.0-44.0); MEAN CORPUSCULAR HEMOGLOBIN 32.3 pg (27.0-33.0); MEAN CORPUSCULAR HGB CONC 34.3 g/dl (32.0-36.5); MEAN CORPUSCULAR VOLUME 94.3 fl (80.0-96.0); MONO # 0.6 10^3/uL (0.0-0.8); MONO % 10.3 % (2.0-8.0); NEUTROPHILS # 3.2 10^3/uL (1.5-8.5); NEUTROPHILS % 59.3 % (36.0-66.0); PLATELET COUNT, AUTOMATED 147 10^3/uL (150-450); RED BLOOD COUNT 4.18 10^6/uL (4.30-6.10); WHITE BLOOD COUNT 5.4 10^3/uL (4.0-10.0)
[2023-01-24 13:57] LABS: CREATININE, URINE 240.4 MG/DL
[2023-01-24 14:01] LABS: HEMOGLOBIN A1c 7.6 % (4.0-6.0)
[2023-01-24 14:12] LABS: MAU/CREAT RATIO 296.1 MCG/MG (0.0-30.0)
[2023-01-24 16:23] LABS: ALBUMIN 3.7 G/DL (3.2-5.2); ALKALINE PHOSPHATASE 47 U/L (46-116); ALT/SGPT 39 U/L (7.0-40); AST/SGOT 25 U/L (<34); BILIRUBIN,TOTAL 0.5 MG/DL (0.3-1.2); BLOOD UREA NITROGEN 19 MG/DL (9-23); CALCIUM LEVEL 9.5 MG/DL (8.3-10.6); CARBON DIOXIDE LEVEL 26 MMOL/L (20-31); CHLORIDE LEVEL 101 MMOL/L (98-107); CREATININE FOR GFR 1.04 MG/DL (0.70-1.30); GLOMERULAR FILTRATION RATE > 60.0 (>42); GLUCOSE, FASTING 200 MG/DL (74-106); POTASSIUM SERUM 4.5 MMOL/L (3.5-5.1); SODIUM LEVEL 135 MMOL/L (136-145)
[2023-01-24 18:38] LABS: TOTAL PROTEIN 6.4 G/DL (5.7-8.2)
== END ==
LOC: M LABDRWAD 11:08
PROVIDERS: ATTEND Nurse Practitioner Family
DX: I12.9 Hypertensive chronic kidney disease with stage 1 through stage 4 chronic kidney disease, or unspecified chronic kidney disease (principal); N18.2 Chronic kidney disease, stage 2 (mild); E11.69 Type 2 diabetes mellitus with other specified complication

== ENCOUNTER → 2023-07-03 | Outpatient (CLI) | payer MEDICARE, OTHER | LOC: M RAD 12:11 | PROVIDERS: ATTEND Surgery Vascular Surgery | DX: I73.9 Peripheral vascular disease, unspecified (principal); I71.40 Abdominal aortic aneurysm, without rupture, unspecified ==

== ENCOUNTER → 2023-07-15 | Outpatient (REF) | payer MEDICARE, OTHER ==
[2023-07-15 13:24] LABS: BLOOD UREA NITROGEN 21 MG/DL (9-23); CREATININE FOR GFR 1.07 MG/DL (0.70-1.30); GLOMERULAR FILTRATION RATE > 60.0 (>42)
== END ==
LOC: M LABDRWAD 12:35
PROVIDERS: ATTEND Surgery Vascular Surgery
DX: Z01.818 Encounter for other preprocedural examination (principal); I73.9 Peripheral vascular disease, unspecified

== ENCOUNTER → 2023-07-16 | Outpatient (CLI) | payer MEDICARE, OTHER ==
[~2023-07-16] MED LIST changes: +ISOVUE-370 76% 100ML VIAL As Ordered ONE
== END ==
LOC: M RAD 07-15 07:51
PROVIDERS: ATTEND Surgery Vascular Surgery
DX: I73.9 Peripheral vascular disease, unspecified (principal); I71.40 Abdominal aortic aneurysm, without rupture, unspecified; N20.0 Calculus of kidney; N28.1 Cyst of kidney, acquired; R91.1 Solitary pulmonary nodule
CPT/HCPCS: 71275; 74174; Q9967

== ENCOUNTER → 2023-07-31 | Outpatient (CLI) | payer MEDICARE, OTHER ==
[~2023-07-31] MED LIST changes: -ISOVUE-370 76% 100ML VIAL As Ordered ONE
[2023-07-31 19:26] LABS: CALCIUM LEVEL 9.5 MG/DL (8.3-10.6); CREATININE FOR GFR 1.34 MG/DL (0.70-1.30); GLOMERULAR FILTRATION RATE 54.7 (>42); POTASSIUM SERUM 5.5 MMOL/L (3.5-5.1)
[2023-07-31 19:44] LABS: HEMOGLOBIN A1c 6.9 % (4.0-6.0)
== END ==
LOC: M LABDRWAD 15:02
PROVIDERS: ATTEND Nurse Practitioner Family
DX: N18.2 Chronic kidney disease, stage 2 (mild) (principal); I25.10 Atherosclerotic heart disease of native coronary artery without angina pectoris; E11.69 Type 2 diabetes mellitus with other specified complication; I12.9 Hypertensive chronic kidney disease with stage 1 through stage 4 chronic kidney disease, or unspecified chronic kidney disease

== ENCOUNTER → 2023-11-11 | Outpatient (CLI) | payer MEDICARE, OTHER ==
[~2023-11-11] MED LIST changes: +CEFD1CAP9 PO; -CEFD300C41 PO
== END ==
LOC: M RAD 09:43
PROVIDERS: ATTEND Nurse Practitioner Family
DX: Z01.818 Encounter for other preprocedural examination (principal); I10 Essential (primary) hypertension

== ENCOUNTER → 2023-11-24 | Outpatient (REF) | payer MEDICARE, OTHER ==
[2023-11-24 13:51] LABS: BLOOD UREA NITROGEN 22 MG/DL (9-23); CALCIUM LEVEL 9.4 MG/DL (8.3-10.6); CARBON DIOXIDE LEVEL 28 MMOL/L (20-31); CHLORIDE LEVEL 104 MMOL/L (98-107); CREATININE FOR GFR 1.12 MG/DL (0.70-1.30); GLOMERULAR FILTRATION RATE > 60.0 (>35); GLUCOSE, FASTING 223 MG/DL (74-106); POTASSIUM SERUM 4.4 MMOL/L (3.5-5.1); SODIUM LEVEL 137 MMOL/L (136-145)
[2023-11-24 13:56] LABS: HEMOGLOBIN A1c 8.1 % (4.0-6.0)
== END ==
LOC: M LABDRWAD 12:25
PROVIDERS: ATTEND Nurse Practitioner Family
DX: E11.69 Type 2 diabetes mellitus with other specified complication (principal); N18.2 Chronic kidney disease, stage 2 (mild); I25.10 Atherosclerotic heart disease of native coronary artery without angina pectoris; I10 Essential (primary) hypertension

== ENCOUNTER → 2024-01-23 | Outpatient (REF) | payer MEDICARE, OTHER ==
[2024-01-23 14:00] LABS: BLOOD UREA NITROGEN 19 MG/DL (9-23); CREATININE FOR GFR 0.93 MG/DL (0.70-1.30); GLOMERULAR FILTRATION RATE > 60.0 (>35)
== END ==
LOC: M LABDRWAD 12:51
PROVIDERS: ATTEND Surgery Vascular Surgery
DX: Z01.818 Encounter for other preprocedural examination (principal); I73.9 Peripheral vascular disease, unspecified

== ENCOUNTER → 2024-02-23 | Outpatient (CLI) | payer MEDICARE, OTHER ==
[2024-02-23 18:33] LABS: HEMOGLOBIN A1c 8.3 % (4.0-6.0)
== END ==
LOC: M ADAMS 11:09
PROVIDERS: ATTEND Nurse Practitioner Family
DX: M47.896 Other spondylosis, lumbar region (principal); E11.69 Type 2 diabetes mellitus with other specified complication

== ENCOUNTER → 2024-05-14 | Outpatient (CLI) | payer MEDICARE, OTHER ==
[~2024-05-14] MED LIST changes: +FLUO-365 PO; -FLUO20CA22 PO; -GLIM1TAB4 PO; +GLIM1TAB84 PO; +ONDA-282 PO; -ONDA4TAB6 PO; +RAMI10CA64 PO; -RAMI1CAP24 PO; -RAMI1CAP26 PO; +RAMI5CAP60 PO
== END ==
LOC: M RAD 08:32
PROVIDERS: ATTEND Physician Assistant Surgical
DX: M47.897 Other spondylosis, lumbosacral region (principal); M51.37 Other intervertebral disc degeneration, lumbosacral region

== ENCOUNTER → 2024-06-17 | Outpatient (CLI) | payer MEDICARE, OTHER ==
[2024-06-17 14:20] LABS: BLOOD UREA NITROGEN 24 MG/DL (9-23); CREATININE FOR GFR 1.05 MG/DL (0.70-1.30); GLOMERULAR FILTRATION RATE > 60.0 (>35)
== END ==
LOC: M PLALAB 10:26
PROVIDERS: ATTEND Surgery
DX: I71.40 Abdominal aortic aneurysm, without rupture, unspecified (principal)

== ENCOUNTER → 2024-06-19 | Outpatient (CLI) | payer MEDICARE, OTHER | LOC: M RAD 08:07 | PROVIDERS: ATTEND Physician Assistant Surgical | DX: M47.897 Other spondylosis, lumbosacral region (principal); M51.37 Other intervertebral disc degeneration, lumbosacral region; M46.1 Sacroiliitis, not elsewhere classified ==

== ENCOUNTER → 2024-08-25 | Outpatient (REF) | payer MEDICARE, OTHER ==
[2024-08-25 18:30] LABS: HEMOGLOBIN A1c 7.8 % (4.0-6.0)
[2024-08-25 18:43] LABS: ALBUMIN 3.6 G/DL (3.2-5.2); ALKALINE PHOSPHATASE 69 U/L (46-116); ALT/SGPT 67 U/L (7.0-40); AST/SGOT 33 U/L (<34); BILIRUBIN,TOTAL 0.6 MG/DL (0.3-1.2); BLOOD UREA NITROGEN 23 MG/DL (9-23); CALCIUM LEVEL 9.9 MG/DL (8.3-10.6); CARBON DIOXIDE LEVEL 26 MMOL/L (20-31); CHLORIDE LEVEL 106 MMOL/L (98-107); CREATININE FOR GFR 1.22 MG/DL (0.70-1.30); GLOMERULAR FILTRATION RATE > 60.0 (>35); GLUCOSE, FASTING 196 MG/DL (74-106); POTASSIUM SERUM 4.5 MMOL/L (3.5-5.1); SODIUM LEVEL 137 MMOL/L (136-145); TOTAL PROTEIN 6.9 G/DL (5.7-8.2)
== END ==
LOC: M LABDRWAD 17:19
PROVIDERS: ATTEND Nurse Practitioner Family
DX: E11.69 Type 2 diabetes mellitus with other specified complication (principal)

== ENCOUNTER → 2024-09-24 | Outpatient (REF) | payer MEDICARE, OTHER ==
[2024-09-24 18:08] LABS: BLOOD UREA NITROGEN 23 MG/DL (9-23); CALCIUM LEVEL 9.7 MG/DL (8.3-10.6); CARBON DIOXIDE LEVEL 26 MMOL/L (20-31); CHLORIDE LEVEL 106 MMOL/L (98-107); CREATININE FOR GFR 1.18 MG/DL (0.70-1.30); GLOMERULAR FILTRATION RATE > 60.0 (>35); GLUCOSE, FASTING 219 MG/DL (74-106); POTASSIUM SERUM 4.6 MMOL/L (3.5-5.1); SODIUM LEVEL 138 MMOL/L (136-145)
== END ==
LOC: M LABDRWAD 17:06
PROVIDERS: ATTEND Internal Medicine Cardiovascular Disease
DX: E11.9 Type 2 diabetes mellitus without complications (principal); I25.10 Atherosclerotic heart disease of native coronary artery without angina pectoris

== ENCOUNTER → 2025-01-14 | Outpatient (CLI) | payer MEDICARE, OTHER | LOC: M RAD 10:06 | PROVIDERS: ATTEND Nurse Practitioner Family | DX: N18.31 Chronic kidney disease, stage 3a (principal); N28.1 Cyst of kidney, acquired ==

== ENCOUNTER → 2025-01-27 | Outpatient (REF) | payer MEDICARE, OTHER ==
[2025-01-27 16:05] LABS: HEMOGLOBIN A1c 6.6 % (4.0-6.0)
== END ==
LOC: M LABDRWAD 13:09
PROVIDERS: ATTEND Nurse Practitioner Family
DX: E11.69 Type 2 diabetes mellitus with other specified complication (principal)

== ENCOUNTER → 2025-03-26 | Outpatient (CLI) | payer MEDICARE, OTHER | LOC: M RAD 09:06 | PROVIDERS: ATTEND Nurse Practitioner | DX: M51.26 Other intervertebral disc displacement, lumbar region (principal); G89.29 Other chronic pain; M51.27 Other intervertebral disc displacement, lumbosacral region ==

== ENCOUNTER → 2025-06-02 | Outpatient (CLI) | payer MEDICARE, OTHER ==
[~2025-06-02] MED LIST changes: +FARX1TAB5; +FURO40TA2; +MECL-86; +TIRZ12.5
== END ==
LOC: M WHC 09:40
PROVIDERS: ATTEND Nurse Practitioner Family
DX: N18.31 Chronic kidney disease, stage 3a (principal); N28.1 Cyst of kidney, acquired; N20.0 Calculus of kidney; R93.89 Abnormal findings on diagnostic imaging of other specified body structures; N40.1 Benign prostatic hyperplasia with lower urinary tract symptoms; R33.9 Retention of urine, unspecified

== ENCOUNTER → 2025-06-21 | Outpatient (CLI) | payer MEDICARE, OTHER ==
[~2025-06-21] MED LIST changes: +ISOVUE-370 76% 100 ML VIAL As Ordered ONE
== END ==
LOC: M RAD 12:12
PROVIDERS: ATTEND Surgery
DX: Z53.9 Procedure and treatment not carried out, unspecified reason (principal)

== ENCOUNTER → 2025-06-21 | Outpatient (CLI) | payer MEDICARE, OTHER ==
[~2025-06-21] MED LIST changes: -ISOVUE-370 76% 100 ML VIAL As Ordered ONE
== END ==
LOC: M RAD 12:16
PROVIDERS: ATTEND Nurse Practitioner Family
DX: R33.9 Retention of urine, unspecified (principal); D49.4 Neoplasm of unspecified behavior of bladder
CPT/HCPCS: 74178; 82565; Q9967

== ENCOUNTER → 2025-08-09 | Outpatient (REF) | payer MEDICARE, OTHER ==
[2025-08-09 17:59] LABS: APPEARANCE, URINE CLEAR (CLEAR); BACTERIA, URINE AUTO NEGATIVE (NEGATIVE); BILIRUBIN, URINE AUTO NEGATIVE (NEGATIVE); BLOOD, URINE BLOOD NEGATIVE (NEGATIVE); GLUCOSE, URINE (UA) AUTO 3+ mg/dL (NEGATIVE); KETONE, URINE AUTO NEGATIVE (NEGATIVE); LEUKOCYTE ESTERASE, URINE AUTO NEGATIVE (NEGATIVE); NITRITE, URINE AUTO NEGATIVE (NEGATIVE); PROTEIN, URINE AUTO NEGATIVE (NEGATIVE); RBC, URINE AUTO 0 /HPF (0-3); SPECIFIC GRAVITY URINE AUTO 1.025 (1.002-1.035); SQUAMOUS EPITHELIAL CELL UR AU 0 /HPF (0-6); UROBILINOGEN, URINE AUTO 0.2 mg/dL (0.0-2.0); WBC, URINE AUTO 0 /HPF (0-3)
== END ==
LOC: M SMT 16:54
PROVIDERS: ATTEND Urology
DX: R93.89 Abnormal findings on diagnostic imaging of other specified body structures (principal)

== ENCOUNTER → 2025-08-25 | Outpatient (CLI) | payer MEDICARE, OTHER ==
[2025-08-25 17:20] LABS: BASO # 0.0 10^3/uL (0.0-0.2); BASO % 0.8 % (0.0-1.0); EOS # 0.2 10^3/uL (0.0-0.5); EOS % 3.6 % (0.0-3.0); LYMPH # 1.5 10^3/uL (1.5-5.0); LYMPH % 31.4 % (24.0-44.0); MONO # 0.8 10^3/uL (0.0-0.8); MONO % 16.7 % (2.0-8.0); NEUTROPHILS # 2.2 10^3/uL (1.5-8.5); NEUTROPHILS % 47.3 % (36.0-66.0); PLATELET COUNT, AUTOMATED 168 10^3/uL (150-450)
[2025-08-25 17:21] LABS: CREATININE, URINE 145.8 MG/DL; MALB URINE SIEMENS 18.0 MG/L; MAU/CREAT RATIO 12.3 MCG/MG (0.0-30.0)
[2025-08-25 17:22] LABS: ALT/SGPT 37.0 U/L (7.0-40); AST/SGOT 37.0 U/L (<34); CALCIUM LEVEL 9.6 MG/DL (8.3-10.6); CARBON DIOXIDE LEVEL 28.0 MMOL/L (20-31); CHLORIDE LEVEL 100.0 MMOL/L (98-107); CREATININE FOR GFR 1.47 MG/DL (0.70-1.30); GLOMERULAR FILTRATION RATE 47.6 (>35); POTASSIUM SERUM 4.5 MMOL/L (3.5-5.1); SODIUM LEVEL 139.0 MMOL/L (136-145)
[2025-08-25 18:27] LABS: ESTIMATED AVERAGE GLUCOSE 140.0 MG/DL (60-110)
== END ==
LOC: M LABDRWAD 14:41
PROVIDERS: ATTEND Nurse Practitioner Family
DX: E11.69 Type 2 diabetes mellitus with other specified complication (principal); I10 Essential (primary) hypertension

== ENCOUNTER → 2025-09-15 | Outpatient (REF) | payer MEDICARE, OTHER ==
[~2025-09-15] MED LIST changes: +AMLO1TAB24 PO; -FARX1TAB5; +FARX1TAB5 PO; -FURO40TA2; +FURO40TA2 PO; +GLIM2TAB29 PO; -MECL-86; +MECL-86 PO
[2025-09-15 13:55] LABS: CHOLESTEROL LEVEL 169.0 MG/DL (<200); CHOLESTEROL RISK RATIO 4.01 (<5); LDL CHOLESTEROL 69.7 MG/DL (<100); NON-HDL-C 126.9 MG/DL; TRIGLYCERIDES LEVEL 286.0 MG/DL (<150)
== END ==
LOC: M LAB REF 13:06
PROVIDERS: ATTEND Internal Medicine Cardiovascular Disease
DX: E78.2 Mixed hyperlipidemia (principal)

== ENCOUNTER 2025-09-20 11:37 | Day surgery (SDC) | payer MEDICARE, OTHER ==
[~2025-09-20] VITALS: Ht 180.3 cm; Wt 100.9 kg
[2025-09-20 13:25] VITALS: BP 147/65; O2SAT 93
== END 2025-09-20 13:29 | disposition home or self-care (01) ==
LOC: M OPP 11:37
PROVIDERS: ATTEND Surgery
DX: Z12.11 Encounter for screening for malignant neoplasm of colon (principal); K63.5 Polyp of colon; Z86.0100 Personal history of colon polyps, unspecified; Z86.73 Personal history of transient ischemic attack (TIA), and cerebral infarction without residual deficits; Z95.5 Presence of coronary angioplasty implant and graft; Z79.82 Long term (current) use of aspirin; Z79.02 Long term (current) use of antithrombotics/antiplatelets; Z79.85 Long-term (current) use of injectable non-insulin antidiabetic drugs; Z79.84 Long term (current) use of oral hypoglycemic drugs; Z79.899 Other long term (current) drug therapy

== ENCOUNTER 2025-10-03 16:56 | Emergency (ER) | payer MEDICARE, OTHER ==
[~2025-10-03] VITALS: Ht 180.3 cm; Wt 100.1 kg
[2025-10-03 19:06] LABS: BASO # 0.0 10^3/uL (0.0-0.2); BASO % 0.8 % (0.0-1.0); EOS # 0.1 10^3/uL (0.0-0.5); EOS % 2.3 % (0.0-3.0); LYMPH # 1.0 10^3/uL (1.5-5.0); LYMPH % 22.1 % (24.0-44.0); MONO # 0.5 10^3/uL (0.0-0.8); MONO % 11.5 % (2.0-8.0); NEUTROPHILS # 3.0 10^3/uL (1.5-8.5); NEUTROPHILS % 63.1 % (36.0-66.0); PLATELET COUNT, AUTOMATED 167 10^3/uL (150-450)
[2025-10-03 19:26] LABS: CALCIUM LEVEL 10.3 MG/DL (8.3-10.6); CARBON DIOXIDE LEVEL 25.0 MMOL/L (20-31); CHLORIDE LEVEL 102.0 MMOL/L (98-107); CK-MB VALUE MASS 2.4 NG/ML (<3.6); CREATININE FOR GFR 1.2 MG/DL (0.70-1.30); GLOMERULAR FILTRATION RATE 60.8 (>35); POTASSIUM SERUM 4.4 MMOL/L (3.5-5.1); SODIUM LEVEL 139.0 MMOL/L (136-145)
[2025-10-03 19:30] LABS: CPK CREATINE PHOSPHOKINASE 100.0 U/L (46-171); MB/CK RELATIVE INDEX 2.4 (< OR =4)
[2025-10-03] MEDS: ASPIRIN 81 MG CHEWABLE TABLET PO ONE (20:17)
[2025-10-03] MEDS: ACETAMINOPHEN 325 MG TAB PO ONE (20:18)
[2025-10-03 20:56] LABS: CK-MB VALUE MASS 2.3 NG/ML (<3.6)
[2025-10-03 21:24] LABS: CPK CREATINE PHOSPHOKINASE 91.0 U/L (46-171); MB/CK RELATIVE INDEX 2.52 (< OR =4)
[2025-10-03 22:10] VITALS: BP 133/62; TEMP 97.8; O2SAT 94
== END 2025-10-03 22:10 | disposition home or self-care (01) ==
LOC: M ED 16:56 → EDBD 16:56 → M ED 22:10
DX: R51.9 Headache, unspecified (principal); M79.601 Pain in right arm; M79.602 Pain in left arm; I25.10 Atherosclerotic heart disease of native coronary artery without angina pectoris; E11.9 Type 2 diabetes mellitus without complications; E78.5 Hyperlipidemia, unspecified; I10 Essential (primary) hypertension; Z95.5 Presence of coronary angioplasty implant and graft; G31.9 Degenerative disease of nervous system, unspecified; Z79.82 Long term (current) use of aspirin; Z79.899 Other long term (current) drug therapy

== ENCOUNTER 2025-10-06 20:16 | Emergency (ER) | payer MEDICARE, OTHER ==
[~2025-10-06] VITALS: Ht 180.3 cm; Wt 100.9 kg
[2025-10-06 20:37] VITALS: TEMP 97.1
[2025-10-06 20:42] LABS: BASO # 0.0 10^3/uL (0.0-0.2); BASO % 0.7 % (0.0-1.0); EOS # 0.1 10^3/uL (0.0-0.5); EOS % 3.2 % (0.0-3.0); LYMPH # 1.3 10^3/uL (1.5-5.0); LYMPH % 30.5 % (24.0-44.0); MONO # 0.6 10^3/uL (0.0-0.8); MONO % 13.3 % (2.0-8.0); NEUTROPHILS # 2.3 10^3/uL (1.5-8.5); NEUTROPHILS % 52.3 % (36.0-66.0); PLATELET COUNT, AUTOMATED 159 10^3/uL (150-450)
[2025-10-06 21:06] LABS: CK-MB VALUE MASS 2.7 NG/ML (<3.6)
[2025-10-06 21:07] LABS: INR 0.89
[2025-10-06 21:08] LABS: ALT/SGPT 31.0 U/L (7.0-40); AST/SGOT 37.0 U/L (<34); CALCIUM LEVEL 9.4 MG/DL (8.3-10.6); CARBON DIOXIDE LEVEL 24.0 MMOL/L (20-31); CHLORIDE LEVEL 105.0 MMOL/L (98-107); CREATININE FOR GFR 1.57 MG/DL (0.70-1.30); GLOMERULAR FILTRATION RATE 43.7 (>35); POTASSIUM SERUM 4.6 MMOL/L (3.5-5.1); SODIUM LEVEL 141.0 MMOL/L (136-145)
[2025-10-06 21:10] LABS: CPK CREATINE PHOSPHOKINASE 124.0 U/L (46-171); MB/CK RELATIVE INDEX 2.17 (< OR =4)
[2025-10-06] MEDS ORDERED: ISOVUE-370 76% 100 ML VIAL As Ordered ONE (21:32)
[2025-10-06 22:08] LABS: CK-MB VALUE MASS 2.7 NG/ML (<3.6)
[2025-10-06 22:09] LABS: CPK CREATINE PHOSPHOKINASE 122.0 U/L (46-171); MB/CK RELATIVE INDEX 2.21 (< OR =4)
[2025-10-07 00:13] LABS: CK-MB VALUE MASS 2.4 NG/ML (<3.6); CPK CREATINE PHOSPHOKINASE 107.0 U/L (46-171); MB/CK RELATIVE INDEX 2.24 (< OR =4)
[2025-10-07 01:15] VITALS: BP 124/60; O2SAT 93
== END 2025-10-07 01:26 | disposition home or self-care (01) ==
LOC: M ED 20:16
DX: R07.89 Other chest pain (principal); I25.10 Atherosclerotic heart disease of native coronary artery without angina pectoris; I25.2 Old myocardial infarction; E11.9 Type 2 diabetes mellitus without complications; I10 Essential (primary) hypertension; E78.5 Hyperlipidemia, unspecified; Z95.5 Presence of coronary angioplasty implant and graft; Z79.82 Long term (current) use of aspirin; Z79.02 Long term (current) use of antithrombotics/antiplatelets; Z79.899 Other long term (current) drug therapy
CPT/HCPCS: 71045; 71275; 80048; 80076; 82550; 82553; 84484; 85025; 85610; 93005; 93041; 94760; 99285; Q9967

== ENCOUNTER 2025-10-14 10:35 | Emergency (ER) | payer MEDICARE, OTHER ==
[~2025-10-14] VITALS: Ht 180.3 cm; Wt 98.2 kg
[2025-10-14] MEDS ORDERED: RAMI10CA64 PO (11:10)
[2025-10-14 12:06] LABS: BASO # 0.0 10^3/uL (0.0-0.2); BASO % 1.0 % (0.0-1.0); EOS # 0.2 10^3/uL (0.0-0.5); EOS % 4.8 % (0.0-3.0); LYMPH # 1.0 10^3/uL (1.5-5.0); LYMPH % 24.8 % (24.0-44.0); MONO # 0.6 10^3/uL (0.0-0.8); MONO % 13.2 % (2.0-8.0); NEUTROPHILS # 2.3 10^3/uL (1.5-8.5); NEUTROPHILS % 56.0 % (36.0-66.0); PLATELET COUNT, AUTOMATED 151 10^3/uL (150-450)
[2025-10-14 12:31] LABS: ALT/SGPT 35.0 U/L (7.0-40); AST/SGOT 38.0 U/L (<34); CALCIUM LEVEL 9.7 MG/DL (8.3-10.6); CARBON DIOXIDE LEVEL 29.0 MMOL/L (20-31); CHLORIDE LEVEL 102.0 MMOL/L (98-107); CK-MB VALUE MASS 2.4 NG/ML (<3.6); CPK CREATINE PHOSPHOKINASE 97.0 U/L (46-171); CREATININE FOR GFR 1.18 MG/DL (0.70-1.30); GLOMERULAR FILTRATION RATE 61.6 (>35); MB/CK RELATIVE INDEX 2.47 (< OR =4); POTASSIUM SERUM 4.6 MMOL/L (3.5-5.1); SODIUM LEVEL 139.0 MMOL/L (136-145)
[2025-10-14 12:54] LABS: INR 0.94
[2025-10-14 15:28] LABS: CK-MB VALUE MASS 2.0 NG/ML (<3.6)
[2025-10-14 15:31] LABS: CPK CREATINE PHOSPHOKINASE 85.0 U/L (46-171); MB/CK RELATIVE INDEX 2.35 (< OR =4)
[2025-10-14 16:01] VITALS: BP 146/66; TEMP 97.8; O2SAT 91
== END 2025-10-14 16:14 | disposition home or self-care (01) ==
LOC: M ED 10:35
DX: M79.622 Pain in left upper arm (principal); Z95.5 Presence of coronary angioplasty implant and graft; I25.2 Old myocardial infarction; Z86.718 Personal history of other venous thrombosis and embolism; Z87.01 Personal history of pneumonia (recurrent); H35.30 Unspecified macular degeneration; E11.9 Type 2 diabetes mellitus without complications; F32.A Depression, unspecified; Z79.82 Long term (current) use of aspirin; Z79.02 Long term (current) use of antithrombotics/antiplatelets; Z79.84 Long term (current) use of oral hypoglycemic drugs; Z79.899 Other long term (current) drug therapy

== ENCOUNTER → 2025-11-04 | Outpatient (CLI) | payer MEDICARE, OTHER ==
[2025-11-04 14:07] LABS: PLATELET COUNT, AUTOMATED 284 10^3/uL (150-450)
== END ==
LOC: M LAB 13:40
PROVIDERS: ATTEND Thoracic Surgery (Cardiothoracic Vascular Surgery)
DX: I25.10 Atherosclerotic heart disease of native coronary artery without angina pectoris (principal)

== ENCOUNTER → 2025-11-08 | Outpatient (REF) | payer MEDICARE, OTHER ==
[2025-11-08 17:35] LABS: APPEARANCE, URINE CLEAR (CLEAR); BACTERIA, URINE AUTO NEGATIVE (NEGATIVE); BILIRUBIN, URINE AUTO NEGATIVE (NEGATIVE); BLOOD, URINE BLOOD NEGATIVE (NEGATIVE); GLUCOSE, URINE (UA) AUTO 3+ mg/dL (NEGATIVE); KETONE, URINE AUTO NEGATIVE (NEGATIVE); LEUKOCYTE ESTERASE, URINE AUTO NEGATIVE (NEGATIVE); MUCUS, URINE SMALL (NEGATIVE); NITRITE, URINE AUTO NEGATIVE (NEGATIVE); PROTEIN, URINE AUTO NEGATIVE (NEGATIVE); RBC, URINE AUTO 0 /HPF (0-3); SPECIFIC GRAVITY URINE AUTO 1.018 (1.002-1.035); SQUAMOUS EPITHELIAL CELL UR AU 1 /HPF (0-6); UROBILINOGEN, URINE AUTO 0.2 mg/dL (0.0-2.0); WBC, URINE AUTO 4 /HPF (0-3)
== END ==
LOC: M LAB REF 17:01
PROVIDERS: ATTEND Physician Assistant
DX: I25.10 Atherosclerotic heart disease of native coronary artery without angina pectoris (principal); Z79.899 Other long term (current) drug therapy